=== PATIENT | female | born 1945 | race Caucasian/White ===

== ENCOUNTER → 2017-05-09 | Outpatient (CLI) | payer MEDICARE, OTHER ==
[~2017-05-09] MED LIST: ALPR0.254 PO; AMLO1CAP8 PO; ASCO1TAB8 PO; ASPI81TA50 PO; ATOR10TA PO; BENA1TAB6 PO; BIOT1CAP PO; CALC-507 PO; CARV20CP PO; CHOL100013 PO; CLOP75TA57 PO; DENO60DI SQ; FERR325T58 PO; FISH12002 PO; MAGN400C PO; MESA800T2 PO; MULT-208 PO; OMEP20CA5 PO; SPIR25TA3 PO; UBID100C40 PO; VIT1CAPS27 PO; VITA1TAB49 PO
--- NOTE | 2017-05-09 14:40 | RAD ---
EXAM: Pelvic ultrasound HISTORY: Urinary urgency, hematuria, proteinuria. COMPARISON: None. FINDINGS: Sonographic evaluation of the pelvis was performed transabdominally and transvaginally. The uterus is surgically absent. No pelvic mass is identified. The bladder is unremarkable sonographically. Prevoid volume is 175 mL. There is a 6 mL postvoid residual. There is no significant free fluid. Neither ovary is visualized. The adnexa are unremarkable. IMPRESSION: 1. No cause for pain is identified. Status post hysterectomy. 2. Neither ovary is visualized currently. By report, at least one is surgically absent. 3. 6 mL post void residual volume.
== END | disposition home or self-care (01) ==
LOC: US 10:11
PROVIDERS: ATTEND Family Medicine
DX: R31.29 Other microscopic hematuria (principal); R39.15 Urgency of urination; Z90.710 Acquired absence of both cervix and uterus
CPT/HCPCS: 76830; 76856

== ENCOUNTER → 2017-05-22 | Outpatient (CLI) | payer MEDICARE, OTHER ==
--- NOTE | 2017-05-22 17:30 | RAD ---
EXAM: Abdomen and pelvis CT without intravenous contrast. HISTORY: 71-year-old female with hematuria, right lower quadrant pain more than 2 weeks. Patient reports hysterectomy years ago. TECHNIQUE: Computed tomographic images of the abdomen and pelvis were obtained without contrast. Multiplanar reformatting was performed. PQRS compliance statement: One or more of the following individualized dose reduction techniques were utilized for this examination: 1. Automated exposure control 2. Adjustment of the mA and/or kV according to patient size 3. Use of iterative reconstruction technique COMPARISON: None. FINDINGS: The lung bases demonstrate no acute finding. A few tiny 2 mm noncalcified pulmonary nodules are seen within the visualized lung bases. Detailed evaluation of the intra-abdominal and pelvic organs and vascular structures is limited secondary to lack of IV contrast. Within these limitations, the liver, spleen, pancreas, adrenal glands and left kidney demonstrate no focal abnormality. The gallbladder is surgically absent. No hydronephrosis or nephrolithiasis is seen. A subtle hypoechoic area seen in the mid right kidney, not well evaluated on this noncontrast study. The GI tract demonstrates no dilated bowel loops to suggest obstruction. No definite bowel wall thickening is seen although evaluation is limited given lack of IV and oral contrast. Formed fecal material is present throughout the colon suggesting some degree of constipation. The appendix is not visualized extending off the cecum. The cecum is well visualized and surrounded by intra-abdominal fat, however no tubular structure is seen extending off the cecum to correspond with the appendix. No localized inflammatory changes are seen in this region to suggest acute appendicitis. There is mild haziness of the mesentery as well as a small volume of free fluid present within the dependent portions of the pelvis and lower abdomen along the paracolic gutters. The urinary bladder is grossly unremarkable. The uterus is surgically absent. No adnexal mass is seen. No intra-abdominal or pelvic free air or significant lymphadenopathy is seen. Aorta is normal in caliber with scattered atherosclerotic calcifications present. Overlying soft tissues and visualized osseous structures demonstrate no acute or suspicious finding. IMPRESSION: 1. Small amount of free fluid within the abdomen and pelvis, with mild mesenteric stranding, nonspecific. No focal bowel abnormality is seen on this noncontrast study. No nephrolithiasis or hydronephrosis present. 2. Vague hypoechoic area in the mid right kidney, incompletely characterized. This can be further evaluated with outpatient ultrasound or contrast-enhanced CT. 3. Tiny pulmonary nodules seen, recommend follow-up per Fleischner criteria. Fleischner Society recommendations for solid nodules (Radiology 2017): Single: In a low risk patient: <6mm - No routine follow up. >6-8mm-CT at 6-12 months, then consider CT at 18-24 months. >8mm- consider CT at 3 months, PET/CT or tissue sampling. In a high risk patient (history of smoking or other known risk factors): <6mm -optional CT at 12 months. >6-8mm-CT at 6-12 months, then CT at 18-24 months. >8mm-consider CT at 3 months, PET/CT or tissue sampling. Multiple: In a low risk patient: <6mm - No routine follow up. >6-8mm-CT at 3-6 months, then consider CT at 18-24 months. >8mm-CT at 3-6 months, then consider CT at 18-24 months. In a high risk patient (history of smoking or other known risk factors): <6mm -optional CT at 12 months. >6-8mm-CT at 3-6 months, then CT at 18-24 months. >8mm-CT in 3-6 months, then at 18-24 months. Electronically signed by: Yin Miranda MD (05/22/2017 5:27 PM) [id number]
== END | disposition home or self-care (01) ==
LOC: CT 16:23
PROVIDERS: ATTEND Family Medicine
DX: R19.03 Right lower quadrant abdominal swelling, mass and lump (principal); R91.8 Other nonspecific abnormal finding of lung field; I70.0 Atherosclerosis of aorta; Z90.49 Acquired absence of other specified parts of digestive tract; Z90.710 Acquired absence of both cervix and uterus
CPT/HCPCS: 74176

== ENCOUNTER → 2017-06-09 | Outpatient (CLI) | payer MEDICARE, OTHER ==
[~2017-06-09] MED LIST changes: +BARIUM SULFATE 60% 355 ML SUSP PO ONE
--- NOTE | 2017-06-09 10:44 | RAD ---
Small bowel follow-through study 06/09/2017 Clinical history: Diarrhea. History of Crohn's disease. Technique: A small bowel follow-through study was performed under radiographic and intermittent fluoroscopic control. The total fluoroscopic time for this study was 0.6 minutes. 2 digital spot radiographs were obtained. Findings: Comparison is made to patient's CT scan of the abdomen and pelvis dated 05/22/2017. An AP digital radiograph of the abdomen/pelvis was obtained as a child specialist. This demonstrates surgical clips within the right upper quadrant of the abdomen consistent with a cholecystectomy. The abdominal bowel gas pattern is nonobstructive. A moderate amount of stool is seen throughout the colon. No radiopaque calculus is seen. Degenerative changes are seen involving the lumbar spine and both hips. The mucosal pattern of the duodenum, jejunum, ileum and terminal ileum are within normal limits. The cecum is in its normal location within the right lower quadrant abdomen. The small bowel transit time is within normal limits. No small bowel wall thickening is seen. No extrinsic mass effect upon the small intestine is noted. Impression: Negative study.
== END | disposition home or self-care (01) ==
LOC: RAD 08:00
PROVIDERS: ATTEND Internal Medicine Gastroenterology
DX: R19.7 Diarrhea, unspecified (principal); K50.90 Crohn's disease, unspecified, without complications
CPT/HCPCS: 74250

== ENCOUNTER 2019-02-25 15:35 | Inpatient (IN) | payer MEDICARE, OTHER ==
[~2019-02-25] VITALS: Ht 147.3 cm; Wt 59.6 kg
[~2019-02-25 15:35] MED LIST changes: -AMLO1CAP8 PO; +AMLO1CAP9 PO; -BARIUM SULFATE 60% 355 ML SUSP PO ONE; -SPIR25TA3 PO; +SPIR25TA5 PO
[2019-02-25 15:54] VITALS: BP 138/71
[2019-02-25] MEDS ORDERED: MAGN400T22 PO (16:25)
[2019-02-25] MEDS ORDERED: CARV6.25 PO (16:25)
[2019-02-25] MEDS ORDERED: IV NORMAL SALINE 1,000ML 1,000 ML IV SCH (16:30)
[2019-02-25] MEDS: IPRATRPIUM/ALBUTEROL 0.5/2.5MG 3 ML NEBU. NEB SCH ×2 (16:40→21:25)
[2019-02-25] MEDS ORDERED: VITA400C6 PO (16:49)
[2019-02-25] MEDS ORDERED: ASCO500T3 PO (16:49)
[2019-02-25] MEDS ORDERED: BENA20TA4 PO (16:49)
[2019-02-25] MEDS ORDERED: BALS750C PO (16:49)
[2019-02-25] MEDS ORDERED: AMLO5TAB10 PO (16:49)
[2019-02-25] MEDS ORDERED: BIOT10004 PO (16:49)
[2019-02-25 16:59] LABS: BASO # 0.1 x10^3/uL (0.0-0.2); BASO % 1 % (0-3); EOS # 0.3 x10^3/uL (0.0-0.7); EOS % 2 % (0-3); HEMATOCRIT 31.5 % (36.0-47.0); HEMOGLOBIN 10.8 g/dL (12.0-15.5); LYMPH % 16 % (24-48); MEAN CORPUSCULAR HEMOGLOBIN 30 pg (25-35); MEAN CORPUSCULAR HGB CONC 34 g/dL (31-37); MEAN CORPUSCULAR VOLUME 89 fL (79-100); MONO # 1.3 x10^3/uL (0.0-1.1); MONO % 11 % (0-9); NEUT % 71 % (31-73); PLATELET COUNT 285 x10^3/uL (140-400); RED BLOOD COUNT 3.55 x10^6/uL (3.50-5.40); RED CELL DISTRIBUTION WIDTH 13.4 % (11.5-14.5); WHITE BLOOD COUNT 12.7 x10^3/uL (4.0-11.0)
--- NOTE | 2019-02-25 17:03 | NUR ---
NURSING NOTES: PATIENT ADMITTED TO [facility] ROOM 120 WITH DX OF PNEUMONIA. PATIENT ORIENTED TO ROOM AND UNIT ROUTINES. BELONGINGS LEFT WITH PATIENT INCLUDE: 2 RINGS, WATCH, PANTS, SHIRT, SOCKS, SHOES, JACKET, GLASSES AND GLASSES CASE.
[2019-02-25] MEDS: AZITHROMYCIN 500 MG in IV NORMAL SALINE 250ML 250 ML IV SCH (17:11)
[2019-02-25 17:13] LABS: ALBUMIN 2.6 g/dL (3.4-5.0); ALBUMIN/GLOBULIN RATIO 0.6 (1.0-1.7); CALCIUM 9.1 mg/dL (8.5-10.1); CREATININE 0.8 mg/dL (0.6-1.0); GFR 70.1; POTASSIUM 3.8 mmol/L (3.5-5.1); TOTAL BILIRUBIN 0.4 mg/dL (0.2-1.0); TOTAL PROTEIN 7.1 g/dL (6.4-8.2)
--- NOTE | 2019-02-25 17:30 | NUR ---
When I called the nurse SHEA Philippe about this patient breathing treatments, she stated the patient was in xray and then needed to eat so we agreed that patient would just get the scheduled 2000 treatment
[2019-02-25 18:27] VITALS: BP 120/71
[2019-02-25 22:21] LABS: BACTERIA,URINE FEW /HPF (0-FEW); BILIRUBIN,URINE NEG (NEG); CLARITY,URINE CLEAR; GLUCOSE,URINE NEG (NEG); NITRITE,URINE NEG (NEG); RBC,URINE 0 /HPF (0-2); SQUAMOUS EPITHELIAL CELL,UR OCC /LPF; UROBILINOGEN,URINE 0.2 mg/dL (0.2 mg/dL); WBC,URINE OCC /HPF (0-4)
[2019-02-25 22:22] LABS: COLOR,URINE YELLOW
[2019-02-26] MEDS: IPRATRPIUM/ALBUTEROL 0.5/2.5MG 3 ML NEBU. NEB SCH ×4 (04:32→19:58)
[2019-02-26 06:12] LABS: BASO % 0 % (0-3); EOS # 0.2 x10^3/uL (0.0-0.7); EOS % 2 % (0-3); HEMATOCRIT 30.4 % (36.0-47.0); HEMOGLOBIN 10.4 g/dL (12.0-15.5); LYMPH # 1.5 x10^3/uL (1.0-4.8); LYMPH % 12 % (24-48); MEAN CORPUSCULAR HEMOGLOBIN 31 pg (25-35); MEAN CORPUSCULAR HGB CONC 34 g/dL (31-37); MEAN CORPUSCULAR VOLUME 89 fL (79-100); MONO # 1.3 x10^3/uL (0.0-1.1); MONO % 10 % (0-9); NEUT # 9.3 x10^3uL (1.8-7.7); NEUT % 75 % (31-73); PLATELET COUNT 293 x10^3/uL (140-400); RED CELL DISTRIBUTION WIDTH 13.5 % (11.5-14.5); WHITE BLOOD COUNT 12.4 x10^3/uL (4.0-11.0)
[2019-02-26 06:19] LABS: CALCIUM 8.1 mg/dL (8.5-10.1); CREATININE 0.7 mg/dL (0.6-1.0); GFR 81.8
[2019-02-26 07:24] VITALS: BP 106/68
--- NOTE | 2019-02-26 08:34 | RAD ---
Examination: CT CHEST WO CONTRAST History: Right upper lobe pneumonia Comparison/Correlation: 03/23/2015 CT neck and chest with contrast, 06/01/2017 CT abdomen and pelvis without contrast Findings: Axial images of the chest were obtained without contrast. Sagittal and coronal reformatted images were provided. Dense right upper lobe consolidation is present abutting the major fissure. This is at the upper lung field extending to the hilar level. Left lung is unremarkable. Small right pleural effusion is present. No suspicious pulmonary nodules identified in the lung bases. Coronary arterial calcifications are noted. Minimal fluid in the pericardial recesses is identified. Right lower paratracheal lymph node measuring up to 0.84 cm diameter is present and likely reactive. Coronary arterial calcifications are notable. Small hiatal hernia is present. Cholecystectomy is evident. Moderate quantity of debris in the stomach is evident. Impression: Right upper lobe consolidation most likely representing pneumonia. Small pleural effusion. Follow-up to resolution is recommended to exclude possibility of underlying neoplastic involvement. Previously described punctate nodules involving the lung bases on 05/22/2017 CT abdomen and pelvis without contrast are stable. No suspicious lung basilar nodule. PQRS Compliance Statement: One or more of the following individualized dose reduction techniques were utilized for this examination: 1. Automated exposure control 2. Adjustment of the mA and/or kV according to patient size 3. Use of iterative reconstruction technique Electronically signed by: Anthony Cruz MD (02/26/2019 8:31 AM) [facility]
[2019-02-26] MEDS ORDERED: ALPRAZolam 0.25 MG TABLET PO PRN (08:45)
[2019-02-26] MEDS ORDERED: NON FORMULARY ITEM (Benazepril/Hydrochlorothiazide (Benazepril-Hctz 20-12.5 Mg Tab) 1 TAB) PO SCH (09:00)
[2019-02-26] MEDS: FERROUS SULFATE 325 MG TABLET. PO SCH (09:10)
[2019-02-26] MEDS: amLODIPine BESYLATE 5 MG TABLET PO SCH ×2 (09:10→20:31)
[2019-02-26] MEDS: MAGNESIUM OXIDE 400 MG TABLET PO SCH (09:10)
[2019-02-26] MEDS: hydroCHLOROthiazide 12.5 MG CAPSULE PO SCH (09:10)
[2019-02-26] MEDS: CLOPIDOGREL BISULFATE 75 MG TABLET PO SCH (09:10)
[2019-02-26] MEDS: CARVEDILOL 6.25 MG TABLET PO SCH ×2 (09:10→17:44)
[2019-02-26] MEDS: SPIRONOLACTONE 25 MG TABLET PO SCH (09:11)
[2019-02-26] MEDS: LACTOBACILLUS RHAMNOSUS GG 1 CAPSULE. PO SCH ×2 (09:11→20:30)
[2019-02-26] MEDS: MULTIVITAMIN with MINERAL TABLET. PO SCH (09:11)
[2019-02-26] MEDS: LISINOPRIL 20 MG TABLET PO SCH ×2 (09:11→20:30)
[2019-02-26] MEDS: ASPIRIN ENTERIC COATED 81 MG TABLET.DR. PO SCH (09:11)
[2019-02-26] MEDS: PANTOPRAZOLE 40 MG TABLET. PO SCH (09:11)
--- NOTE | 2019-02-26 09:40 | RAD ---
CHEST PA LATERAL History: Pneumonia. Comparison: Chest CT February 25, 2019. Findings: Right upper lobe consolidation. Small right pleural effusion. Surgical clips right upper quadrant. Normal heart size. Impression: 1. Right upper lobe consolidation, concerning for pneumonia. Recommend follow-up to ensure resolution. 2. Small right pleural effusion. Electronically signed by: Chivo Mckinnon DO (02/26/2019 9:38 AM) [facility]
[2019-02-26] MEDS: guaiFENesin DM 200MG/20MG 10 ML SYRUP PO PRN ×2 (11:03→20:30)
[2019-02-26 11:20] VITALS: BP 112/66
[2019-02-26 15:27] VITALS: BP 104/56
[2019-02-26] MEDS: AZITHROMYCIN 500 MG in IV NORMAL SALINE 250ML 250 ML IV SCH (16:36)
[2019-02-26 20:28] VITALS: BP 108/62
[2019-02-26] MEDS: ATORVASTATIN CALCIUM 20 MG TABLET PO SCH (20:30)
[2019-02-26] MEDS: BALSALAZIDE DISODIUM 750 MG PO SCH (20:30)
[2019-02-26] MEDS ORDERED: BENAZEPRIL HCL PO SCH (21:00)
[2019-02-26 23:23] VITALS: BP 109/65
[2019-02-27] VITALS (8 sets, daily range): BP systolic 90–115; BP diastolic 56–71
[2019-02-27] MEDS: IPRATRPIUM/ALBUTEROL 0.5/2.5MG 3 ML NEBU. NEB SCH ×4 (04:57→20:38)
[2019-02-27] MEDS: PANTOPRAZOLE 40 MG TABLET. PO SCH (07:53)
[2019-02-27] MEDS: CARVEDILOL 6.25 MG TABLET PO SCH ×2 (08:56→17:11)
[2019-02-27] MEDS ORDERED: ZOLPIDEM 5 MG TABLET. PO PRN (09:45)
[2019-02-27] MEDS ORDERED: LOPERAMIDE 2 MG CAPSULE PO PRN (09:45)
[2019-02-27] MEDS: BALSALAZIDE DISODIUM 750 MG PO SCH ×2 (10:56→20:52)
[2019-02-27] MEDS: MAGNESIUM OXIDE 400 MG TABLET PO SCH (10:57)
[2019-02-27] MEDS: ASPIRIN ENTERIC COATED 81 MG TABLET.DR. PO SCH (10:57)
[2019-02-27] MEDS: LACTOBACILLUS RHAMNOSUS GG 1 CAPSULE. PO SCH ×2 (10:57→20:50)
[2019-02-27] MEDS: MULTIVITAMIN with MINERAL TABLET. PO SCH (10:58)
[2019-02-27] MEDS: LISINOPRIL 20 MG TABLET PO SCH ×2 (11:03→20:53)
[2019-02-27] MEDS: hydroCHLOROthiazide 12.5 MG CAPSULE PO SCH (11:03)
[2019-02-27] MEDS: SPIRONOLACTONE 25 MG TABLET PO SCH (11:03)
[2019-02-27] MEDS: amLODIPine BESYLATE 5 MG TABLET PO SCH ×2 (11:04→20:53)
--- NOTE | 2019-02-27 11:57 | RAD ---
CHEST PA LATERAL Clinical indications: Pneumonia. Follow-up study. COMPARISON: February 25, 2019. Findings: Again seen is a right upper lobe lung infiltrate. There has been mild improvement. Small posterior right-sided pleural effusion is unchanged. The heart size, pulmonary vasculature, mediastinum and both zina are unremarkable. Mild compression deformity of the upper thoracic spine is unchanged. Impression: Mild improvement of diffuse right upper lobe consolidative infiltrate. Electronically signed by: Jb Red MD (02/27/2019 11:54 AM) [place] [id number]
--- NOTE | 2019-02-27 15:38 | CONS ---
DATE OF CONSULTATION: REASON FOR CONSULTATION: Medical management. HISTORY OF PRESENT ILLNESS: The patient is an 87-year-old male patient, who was admitted to [address] [place] [address] Payne's care. Apparently, the patient was admitted with marked dehydration. He has been unable to eat or drink. He was also quite violent and had episodes of impulse control with his and therefore, he was treated with IV fluid and once he is medically stable, he was [facility]. She apparently has a history of dementia, Alzheimer, vascular. He had been living at home with his and then the had to be hospitalized during the rehabilitation. The son was the caregiver for them. Reportedly, he was overwhelmed to his mother's care. The patient has been increasingly forgetful, confused as part of his dementia, getting more depressed, was dehydrated, agitated, difficult to manage at home with unexplained weight loss and failure to thrive and therefore, he was [facility] to [facility] after stabilization in [address] [place] [address]. The patient is very demented and does not give any useful information. PAST MEDICAL HISTORY: Significant for dehydration, failure to thrive, weight loss, history of cancer of the prostate, congestive heart failure, COPD, hypertension, prostate cancer, treated with chemotherapy. He also has musculoskeletal disorder, arthritis and hypothyroidism. PAST SURGICAL HISTORY: Unremarkable. FAMILY HISTORY: Positive for heart disease. SOCIAL HISTORY: The patient seems to be a smoker. He denied any alcohol or drug abuse. He is currently a DNR/DNI. ALLERGIES: HE IS ALLERGIC TO SULFA AND OLMESARTAN. MEDICATIONS: He is currently on following medications: He is on metoprolol 25 mg twice a day, aspirin 81 mg once a day, meloxicam 15 mg daily, quetiapine fumarate 50 mg at bedtime, hydroxyzine 25 mg 3 times a day, levothyroxine sodium 50 mcg once a day and clobetasol emollient applied topically twice a day. REVIEW OF SYSTEMS: As per history of present illness. PHYSICAL EXAMINATION GENERAL: When I examined him this afternoon, he was sitting in the chair comfortably in no apparent distress. He was definitely confused, but not agitated, slightly pale, but no jaundice, cyanosis or thyromegaly. No jugular venous distention. No limb edema. VITAL SIGNS: His heart rate was 67, blood pressure was 163/65, temperature was 97.5, respiratory rate was 18 and oxygen saturation was 94%. HEAD, EYES, EARS, NOSE AND THROAT: Showed normocephalic, atraumatic. NECK: Supple. HEART: Showed normal first and second heart sounds with no gallop or murmur. CHEST: Clear to auscultation. No crepitation, rhonchi. ABDOMEN: Distended, soft, nontender. No guarding or rigidity. No organomegaly. All hernial orifices intact. Bowel sounds normal. NEUROLOGIC: He is demented, but without any obvious lateralizing sign. All his cranial nerves are intact. EXTREMITIES: He moves extremities without difficulty, ambulates without assistance or assistive device, although he is very unsteady on his gait. LABORATORY DATA: Showed a white cell count 7800, hemoglobin 13, hematocrit 39, MCV 87, and platelet count of 135,000. Serum sodium was 135, potassium 4.3, chloride 98, bicarbonate 29, anion gap of 8, BUN 23, creatinine 1.1, estimated GFR was 63 mL per minute. His glucose was 104, calcium was 9.4. Total bilirubin, AST, ALT were normal. Alkaline phosphatase slightly elevated. Total protein was 8, albumin was 3.5. His urinalysis was essentially unremarkable. His chest x-ray showed that cardiomediastinal silhouette is normal. Pulmonary vasculature is normal. The lungs are hyperinflated. There are reticular opacities in the lungs. IMPRESSION: In summary, this is an 87-year-old male patient who was [facility] after stabilization in [address] [place] [address] for dehydration on account of increasing confusion, unexplained weight loss, failure to thrive. He has been increasingly forgetful, confused, has been also violent and therefore was admitted to this unit for inpatient psychiatric stabilization. Medically, he has multiple medical problems including weight loss and failure to thrive, history of cancer and congestive heart failure, long-term chronic obstructive pulmonary disease, congestive heart failure, hypertension, prostate cancer. He is also known to have hypothyroidism. His vital signs are all generally stable, although he has been very agitated and blood pressure was high, although after treatment with Ativan, his blood pressure came down, all his lab works are well within normal range. PLAN: My plan is to obviously follow his labs and review and make any necessary recommendations. Thank you, Dr. Duke for allowing me to participate in the care of this patient. RAFAEL SIN MD DR: Bolivar JOB#: [id number] / [id number]
[2019-02-27] MEDS: AZITHROMYCIN 500 MG in IV NORMAL SALINE 250ML 250 ML IV SCH (17:32)
[2019-02-27] MEDS: ATORVASTATIN CALCIUM 20 MG TABLET PO SCH (20:50)
[2019-02-27] MEDS: guaiFENesin DM 200MG/20MG 10 ML SYRUP PO PRN (20:50)
--- NOTE | 2019-02-27 23:35 | PN ---
DATE: SUBJECTIVE: The patient not feeling very well, although her pneumonia may be clearing. She is having severe diarrhea, we will check her for C. diff. The patient will get a repeat chest x-ray, has not had one in a couple of days. OBJECTIVE: VITAL SIGNS: Blood pressure 115/60, respiratory rate 20, pulse 80, afebrile, good oxygen saturation. GENERAL: The patient looks ill. LUNGS: Diminished primarily in the right upper lobe. Lungs are clear on the left. CARDIOVASCULAR: Stable. ABDOMEN: Soft. EXTREMITIES: No clubbing, cyanosis or edema. Several bowel movements, no blood or mucus noted. NEUROLOGIC: Intact. We will go ahead and continue to monitor her, get her C. difficile toxin assay and monitor carefully, on that she has had a history of Crohn's disease. The patient otherwise continued to be monitored and make further evaluation per those responses to the test noted. IMPRESSION: Pneumonia of unspecified etiology, right upper lobe, diarrhea, history of Crohn's disease. PLAN: As above. VICKI CONNOR MD DR: ALEKSANDR/zane JOB#: [id number] / [id number]
[2019-02-28] MEDS: guaiFENesin DM 200MG/20MG 10 ML SYRUP PO PRN ×4 (02:50→19:09)
[2019-02-28] MEDS: IPRATRPIUM/ALBUTEROL 0.5/2.5MG 3 ML NEBU. NEB SCH ×4 (05:20→19:46)
[2019-02-28 05:38] VITALS: BP 117/69
[2019-02-28 06:47] LABS: CALCIUM 8.5 mg/dL (8.5-10.1); CREATININE 0.7 mg/dL (0.6-1.0); GFR 81.8
[2019-02-28] MEDS: PANTOPRAZOLE 40 MG TABLET. PO SCH (07:41)
[2019-02-28 07:42] VITALS: BP 115/65
[2019-02-28] MEDS: CARVEDILOL 6.25 MG TABLET PO SCH ×2 (07:42→18:05)
[2019-02-28] MEDS: MAGNESIUM OXIDE 400 MG TABLET PO SCH (09:10)
[2019-02-28] MEDS: BALSALAZIDE DISODIUM 750 MG PO SCH ×2 (09:10→20:14)
[2019-02-28] MEDS: FERROUS SULFATE 325 MG TABLET. PO SCH (09:10)
[2019-02-28] MEDS: LACTOBACILLUS RHAMNOSUS GG 1 CAPSULE. PO SCH ×2 (09:10→20:13)
[2019-02-28] MEDS: ASPIRIN ENTERIC COATED 81 MG TABLET.DR. PO SCH (09:10)
[2019-02-28] MEDS: CLOPIDOGREL BISULFATE 75 MG TABLET PO SCH (09:10)
[2019-02-28] MEDS: MULTIVITAMIN with MINERAL TABLET. PO SCH (09:10)
--- NOTE | 2019-02-28 09:14 | NUR ---
VS checked p/t 0900 med administration: BP 109/62, HR 79, SpO2 98% on RA. Did not admin Spironolactone, Amlodipine, Hydrochlorothiazide or Lisinopril given pt's BP. Pt concurred, stating, "I don't take my blood pressure medications at home if my blood pressure is less than 120." WCTM. Andrew Negron RN Addendum: 02/28/19 at 1322 by ALEXANDER NEGRON RN RN Rechecked BP at 1318: 106/61 left arm, sitting, with HR 75 and SpO2 99% on RA. Will not administer 0900 spironolactone, hydrochlorothiazide, amlodipine, or lisinopril given continued lower pressures. WCTM. Andrew Negron RN
[2019-02-28 11:18] VITALS: BP 117/63
[2019-02-28 13:25] VITALS: BP 106/61
[2019-02-28] MEDS: amLODIPine BESYLATE 5 MG TABLET PO SCH ×2 (13:30→20:09)
[2019-02-28] MEDS: LISINOPRIL 20 MG TABLET PO SCH ×2 (13:30→20:09)
[2019-02-28] MEDS: hydroCHLOROthiazide 12.5 MG CAPSULE PO SCH (13:30)
[2019-02-28] MEDS: SPIRONOLACTONE 25 MG TABLET PO SCH (13:30)
[2019-02-28 15:16] VITALS: BP 113/66
[2019-02-28] MEDS: AZITHROMYCIN 500 MG in IV NORMAL SALINE 250ML 250 ML IV SCH (18:06)
[2019-02-28] MEDS ORDERED: DIPH25CA58 PO (19:55)
[2019-02-28] MEDS ORDERED: diphenhydrAMINE HCL 25 MG CAPSULE PO PRN (20:00)
[2019-02-28] MEDS: ATORVASTATIN CALCIUM 20 MG TABLET PO SCH (20:13)
[2019-02-28 20:21] VITALS: BP 112/66
--- NOTE | 2019-02-28 21:19 | PN ---
DATE: 02/28/2019 SUBJECTIVE: The patient in with pneumonia, still having coughing spells ____ still very weak. OBJECTIVE: VITAL SIGNS: Blood pressure goes down to 95/60, respiratory rate 20, pulse 80, afebrile. GENERAL: The patient is still very weak, difficulty walking. Started on PT, OT. LUNGS: Diminished primarily in the right upper lobe. X-ray showed some modest improvement, but continued IV antibiotic therapy as she has failed outpatient therapy. CARDIOVASCULAR: Regular sinus rhythm. ABDOMEN: Soft, nontender. EXTREMITIES: No clubbing, cyanosis or edema. NEUROLOGIC: The patient is alert and oriented. IMPRESSION AND PLAN: Right upper lobe pneumonia as well as diarrhea and history of Crohn disease. The patient's C. difficile is still pending. VICKI CONNOR MD DR: ALEKSANDR/zane JOB#: [id number] / [id number]
[2019-03-01 00:14] VITALS: BP 107/63
[2019-03-01] MEDS: IPRATRPIUM/ALBUTEROL 0.5/2.5MG 3 ML NEBU. NEB SCH ×2 (05:51→10:03)
[2019-03-01 06:00] VITALS: BP 105/66
[2019-03-01 06:42] LABS: CALCIUM 8.6 mg/dL (8.5-10.1); CREATININE 0.7 mg/dL (0.6-1.0); GFR 81.8; POTASSIUM 4.3 mmol/L (3.5-5.1)
[2019-03-01 06:50] LABS: BASO % 0 % (0-3); EOS # 0.3 x10^3/uL (0.0-0.7); EOS % 3 % (0-3); HEMATOCRIT 31.8 % (36.0-47.0); HEMOGLOBIN 10.8 g/dL (12.0-15.5); LYMPH # 2.4 x10^3/uL (1.0-4.8); LYMPH % 23 % (24-48); MEAN CORPUSCULAR HEMOGLOBIN 31 pg (25-35); MEAN CORPUSCULAR HGB CONC 34 g/dL (31-37); MEAN CORPUSCULAR VOLUME 90 fL (79-100); MONO # 0.9 x10^3/uL (0.0-1.1); MONO % 9 % (0-9); NEUT # 6.8 x10^3uL (1.8-7.7); NEUT % 66 % (31-73); PLATELET COUNT 409 x10^3/uL (140-400); RED BLOOD COUNT 3.55 x10^6/uL (3.50-5.40); RED CELL DISTRIBUTION WIDTH 13.5 % (11.5-14.5); WHITE BLOOD COUNT 10.4 x10^3/uL (4.0-11.0)
[2019-03-01] MEDS: PANTOPRAZOLE 40 MG TABLET. PO SCH (07:41)
[2019-03-01] MEDS: CARVEDILOL 6.25 MG TABLET PO SCH (07:42)
[2019-03-01] MEDS: MAGNESIUM OXIDE 400 MG TABLET PO SCH (09:13)
[2019-03-01] MEDS: LACTOBACILLUS RHAMNOSUS GG 1 CAPSULE. PO SCH (09:13)
[2019-03-01] MEDS: BALSALAZIDE DISODIUM 750 MG PO SCH (09:13)
[2019-03-01] MEDS: LISINOPRIL 20 MG TABLET PO SCH (09:14)
[2019-03-01] MEDS: MULTIVITAMIN with MINERAL TABLET. PO SCH (09:14)
[2019-03-01] MEDS: SPIRONOLACTONE 25 MG TABLET PO SCH (09:14)
[2019-03-01] MEDS: ASPIRIN ENTERIC COATED 81 MG TABLET.DR. PO SCH (09:14)
[2019-03-01] MEDS: hydroCHLOROthiazide 12.5 MG CAPSULE PO SCH (09:14)
[2019-03-01] MEDS: amLODIPine BESYLATE 5 MG TABLET PO SCH (09:14)
[2019-03-01] MEDS: guaiFENesin DM 200MG/20MG 10 ML SYRUP PO PRN (09:14)
[2019-03-01] MEDS ORDERED: ZOLP5TAB PO (09:52)
[2019-03-01 10:39] VITALS: BP 104/63
--- NOTE | 2019-03-01 11:26 | NUR ---
NURSES NOTES: PATIENT D/C HOME WITH HOME HEALTH. ALL PATIENT BELONGING SENT HOME WITH PATIENT. PATIENT ACCOMPANIED OUT OF FACILITY BY .
[2019-03-01] MEDS ORDERED: levoFLOXacin 750 MG TABLET PO SCH (18:00)
== END 2019-03-01 11:28 | disposition home health service (06) | DRG 871 ==
LOC: 1 SOUTH 15:35
PROVIDERS: ADMIT Family Medicine; ATTEND Family Medicine
DX: A41.9 Sepsis, unspecified organism (principal); J18.1 Lobar pneumonia, unspecified organism; K50.90 Crohn's disease, unspecified, without complications; J44.0 Chronic obstructive pulmonary disease with (acute) lower respiratory infection; Z66 Do not resuscitate; E03.9 Hypothyroidism, unspecified; R19.7 Diarrhea, unspecified; E86.0 Dehydration; F17.200 Nicotine dependence, unspecified, uncomplicated; I11.0 Hypertensive heart disease with heart failure; I50.9 Heart failure, unspecified; M19.90 Unspecified osteoarthritis, unspecified site; F02.80 Dementia in other diseases classified elsewhere, unspecified severity, without behavioral disturbance, psychotic disturbance, mood disturbance, and anxiety; G30.9 Alzheimer's disease, unspecified; Z85.89 Personal history of malignant neoplasm of other organs and systems; Z92.21 Personal history of antineoplastic chemotherapy; Z88.0 Allergy status to penicillin
CPT/HCPCS: 36415; 71046; 71250; 80048; 80053; 81001; 83605; 85025; 87040; 87070; 87205; 94640; J0456; J1956; J7050; J7620; Q0163; 97116; J7030

== ENCOUNTER → 2019-07-01 | Outpatient (CLI) | payer MEDICARE, OTHER ==
[~2019-07-01] MED LIST changes: +AMLO5TAB10 PO; +ASCO500T3 PO; +BALS750C PO; +BENA20TA4 PO; +BIOT10004 PO; +CARV6.25 PO; +DENOSUMAB 60 MG/ML DISP.SYRIN. SQ ONE; +DIPH25CA58 PO; +MAGN400T22 PO; +PRED20TA PO; +VITA-54 PO; +ZOLP5TAB PO
[2019-07-01 12:11] VITALS: BP 131/75
--- NOTE | 2019-07-01 12:14 | NUR ---
NURSING NOTE PT AMBULATED TO ROOM 105 FOR OUTPATIENT INJ OF PROLIA. VITALS OBTAINED. INJECTION GIVEN. PT TOLERATED WELL. PT AMBULATED OFF UNIT. NO COMPLICATIONS. SHEA MALONE.
== END | disposition home or self-care (01) ==
LOC: OPINF 11:26
PROVIDERS: ATTEND Family Medicine
DX: M81.8 Other osteoporosis without current pathological fracture (principal); E03.9 Hypothyroidism, unspecified; I11.0 Hypertensive heart disease with heart failure; I50.9 Heart failure, unspecified; J44.9 Chronic obstructive pulmonary disease, unspecified; G30.9 Alzheimer's disease, unspecified; F02.80 Dementia in other diseases classified elsewhere, unspecified severity, without behavioral disturbance, psychotic disturbance, mood disturbance, and anxiety; M19.90 Unspecified osteoarthritis, unspecified site; F17.200 Nicotine dependence, unspecified, uncomplicated; Z92.21 Personal history of antineoplastic chemotherapy; Z85.89 Personal history of malignant neoplasm of other organs and systems
CPT/HCPCS: 96372; J0897

== ENCOUNTER 2019-07-02 16:56 | Emergency (ER) | payer MEDICARE, OTHER ==
[~2019-07-02] VITALS: Ht 147.3 cm; Wt 59.4 kg
[~2019-07-02 16:56] MED LIST changes: -DENOSUMAB 60 MG/ML DISP.SYRIN. SQ ONE; -PRED20TA PO
--- NOTE | 2019-07-02 17:57 | PHYS DOC ---
Past History Past Medical History: Anxiety, GERD, High Cholesterol, Hypertension, Other Additional Past Medical Histor: CROHNS, OSTEOPOROSIS Past Surgical History: Cholecystectomy, Hysterectomy Smoking: Non-smoker Alcohol Use: None Drug Use: None Adult General Chief Complaint Chief Complaint: OTHER COMPLAINTS HPI HPI Patient is a 73-year-old female presents with a complaint of a strange "head sensation". She reports this morning she woke with a sensation that she is unable to describe. She denies feeling headache, pressure, sharp pain, or numbness. Patient is unable to isolate the location of the sensation and just describes it as her "whole head". Patient mentions that she received her Prolea shot for her osteoporosis yesterday, called her PCP, Dr. Kilgore, and was told to come to the emergency department for evaluation. Patient denies any trauma. Patient took Tylenol for this with no relief. Patient reports that she is on Plavix and aspirin. Patient denies fevers, chest pain, shortness of breath, abdominal pain, nausea, vomiting, or loss of consciousness. Review of Systems Review of Systems Constitutional: Denies fever or chills Eyes: Denies redness or eye pain HENT: Denies nasal congestion or sore throat Respiratory: Denies cough or shortness of breath Cardiovascular: Denies chest pain or palpitations GI: Denies abdominal pain, nausea, or vomiting : Denies dysuria or hematuria Musculoskeletal: Denies back pain or joint pain Integument: Denies rash or skin lesions Neurologic: Denies focal weakness or sensory changes. Reports strange head se nsation. Complete systems were reviewed and found to be within normal limits, except as documented in this note. Allergies Allergies Allergies Coded Allergies Type Severity Reaction Last Updated Verified acetaminophen Allergy Intermediate 03/23/15 Yes propoxyphene Allergy Intermediate 03/23/15 Yes adhesive tape Allergy Unknown 03/23/15 Yes clonidine Allergy Unknown 03/23/15 Yes iodine Allergy Unknown 03/23/15 Yes loratadine Allergy Unknown 03/23/15 Yes magnesium sulfate Allergy Unknown 02/25/19 Yes oxycodone Allergy Unknown 02/25/19 Yes penicillin Allergy Unknown 03/23/15 Yes potassium Allergy Unknown 02/25/19 Yes pseudoephedrine Allergy Unknown 02/25/19 Yes sodium sulfate Allergy Unknown 02/25/19 Yes Physical Exam Physical Exam Constitutional: Well developed, well nourished, no acute distress, non-toxic appearance HENT: Normocephalic, atraumatic, oropharynx moist Eyes: PERRL, EOMI, conjunctiva normal, no discharge Neck: Normal range of motion, no tenderness, supple Cardiovascular: Heart rate normal, regular rhythm Lungs & Thorax: Bilateral breath sounds clear to auscultation, no wheezing Abdomen: Soft, no tenderness Skin: Warm, dry, no erythema, no rash Back: No tenderness, no CVA tenderness Extremities: No tenderness, ROM intact, no edema Neurologic: Alert and oriented X 3, normal motor function, normal sensory function, no focal deficits noted. Psychologic: Affect normal, judgement normal, mood normal Current Patient Data Vital Signs Vital Signs Date Time Temp Pulse Resp B/P (MAP) Pulse Ox O2 Delivery O2 Flow Rate FiO2 07/02/19 17:33 97.9 60 16 100 Room Air EKG EKG [] Radiology/Procedures Radiology/Procedures PROCEDURE: CT HEAD WO CONTRAST Exam: CT head INDICATION: Head fullness TECHNIQUE: Sequential axial images through the head were obtained without the administration of IV contrast. Comparisons: None FINDINGS: No focal parenchymal lesion or hemorrhage is identified. There is no midline shift or sulcal effacement. No acute vascular territory infarction is identified. Obando-white distinction is preserved. The ventricular system is within normal limits without compression hydrocephalus. The basal cisterns are well maintained. Polypoid mucosal thickening within the left sphenoid sinus. The visualized portions of the paranasal sinuses and mastoid air cells are well-pneumatized. No acute fractures. IMPRESSION: No acute intracranial abnormality. Sinus disease as described above. Exposure: One or more of the following in the visualized dose reduction techniques were utilized for this examination: 1. Automated exposure control 2. Adjustment of the MA and/or KV according to patient size Use of iterative of reconstructive technique Electronically signed by: Sasha Fuentes MD (07/02/2019 6:31 PM) [facility] Course & Med Decision Making Course & Med Decision Making Pertinent Imaging studies reviewed. (See chart for details) Patient presents to the ED at direction of her PCP for a strange "head sensation". Patient with history of anticoagulation. CT head obtained to rule out internal bleeding. CT is unremarkable except for Polypoid mucosal thickening within the left sphenoid sinus which may be the etiology of patient's "head sensation". Patient stable for discharge with outpatient follow-up with PCP. Discussed findings and plan with patient and family, who acknowledge understanding and agreement. Dragon Disclaimer Dragon Disclaimer This electronic medical record was generated, in whole or in part, using a voice recognition dictation system. Departure Departure: Impression: Primary Impression: Headache Additional Impression: Sinus disease Disposition: HOME, SELF-CARE Condition: STABLE Referrals: VICKI CONNOR MD (PCP) Patient Instructions: Headache, FAQs, Sinus Headache, [id number] Scripts Prednisone (PREDNISONE) 20 Mg Tablet 2 TAB PO DAILY for sinus disease, #8 TAB Start this prescription tomorrow, Monday07/03/2019 Prov: JASKARAN PRADO DO 07/02/19 Problem Qualifiers Primary Impression: Headache Headache type: unspecified Headache chronicity pattern: acute headache Intractability: not intractable Qualified Codes: R51 - Headache JASKARAN PRADO DO Jul 02, 2019 17:57
[2019-07-02] MEDS ORDERED: DEXAMETHASONE 4 MG TABLET PO ONE (18:15)
--- NOTE | 2019-07-02 18:34 | RAD ---
Exam: CT head INDICATION: Head fullness TECHNIQUE: Sequential axial images through the head were obtained without the administration of IV contrast. Comparisons: None FINDINGS: No focal parenchymal lesion or hemorrhage is identified. There is no midline shift or sulcal effacement. No acute vascular territory infarction is identified. Obando-white distinction is preserved. The ventricular system is within normal limits without compression hydrocephalus. The basal cisterns are well maintained. Polypoid mucosal thickening within the left sphenoid sinus. The visualized portions of the paranasal sinuses and mastoid air cells are well-pneumatized. No acute fractures. IMPRESSION: No acute intracranial abnormality. Sinus disease as described above. Exposure: One or more of the following in the visualized dose reduction techniques were utilized for this examination: 1. Automated exposure control 2. Adjustment of the MA and/or KV according to patient size Use of iterative of reconstructive technique Electronically signed by: Sasha Fuentes MD (07/02/2019 6:31 PM) [facility]
[2019-07-02 18:56] VITALS: BP 129/60
[2019-07-02] MEDS ORDERED: PRED20TA PO (19:02)
== END 2019-07-02 19:07 | disposition home or self-care (01) ==
LOC: ER 16:56
DX: J32.9 Chronic sinusitis, unspecified (principal); R51 Headache; F41.9 Anxiety disorder, unspecified; K21.9 Gastro-esophageal reflux disease without esophagitis; E78.00 Pure hypercholesterolemia, unspecified; I10 Essential (primary) hypertension; Z88.8 Allergy status to other drugs, medicaments and biological substances; Z88.0 Allergy status to penicillin; Z88.5 Allergy status to narcotic agent
CPT/HCPCS: 70450; 99284; J8540

== ENCOUNTER 2019-08-12 15:17 | Inpatient (IN) | payer MEDICARE, OTHER ==
[~2019-08-12] VITALS: Ht 147.3 cm; Wt 61.9 kg
[~2019-08-12 15:17] MED LIST changes: +PRED20TA PO
[2019-08-12 15:46] VITALS: BP 128/69
[2019-08-12] MEDS: IPRATRPIUM/ALBUTEROL 0.5/2.5MG 3 ML NEBU. NEB SCH ×2 (16:37→21:51)
[2019-08-12] MEDS ORDERED: diphenhydrAMINE HCL 25 MG CAPSULE PO PRN (16:45)
[2019-08-12 16:58] LABS: HEMATOCRIT 35.4 % (36.0-47.0); HEMOGLOBIN 11.7 g/dL (12.0-15.5); RED BLOOD COUNT 3.87 x10^6/uL (3.50-5.40); RED CELL DISTRIBUTION WIDTH 14.1 % (11.5-14.5); WHITE BLOOD COUNT 6.5 x10^3/uL (4.0-11.0)
[2019-08-12] MEDS: CARVEDILOL 6.25 MG TABLET PO SCH (17:00)
[2019-08-12 17:22] LABS: ALBUMIN 3.4 g/dL (3.4-5.0); ALBUMIN/GLOBULIN RATIO 1.1 (1.0-1.7); CALCIUM 8.6 mg/dL (8.5-10.1); CREATININE 0.8 mg/dL (0.6-1.0); GFR 70.1; POTASSIUM 3.6 mmol/L (3.5-5.1); TOTAL BILIRUBIN 0.1 mg/dL (0.2-1.0); TOTAL PROTEIN 6.5 g/dL (6.4-8.2)
[2019-08-12 19:47] VITALS: BP 101/63
[2019-08-12] MEDS ORDERED: LISINOPRIL 20 MG TABLET PO SCH (21:00)
[2019-08-12] MEDS: BALSALAZIDE DISODIUM 750 MG PO SCH (21:00)
[2019-08-12 21:50] VITALS: BP 111/68
[2019-08-12] MEDS: ATORVASTATIN CALCIUM 20 MG TABLET PO SCH (21:50)
[2019-08-12] MEDS: amLODIPine BESYLATE 5 MG TABLET PO SCH (21:50)
[2019-08-12] MEDS: methylPREDNISolone SOD SUCC PF 40 MG/ML VIAL. IV SCH (21:51)
[2019-08-12] MEDS: ALPRAZolam 0.25 MG TABLET PO PRN (21:53)
[2019-08-12 23:26] VITALS: BP 112/67
[2019-08-13] MEDS: IPRATRPIUM/ALBUTEROL 0.5/2.5MG 3 ML NEBU. NEB SCH ×4 (05:47→20:41)
[2019-08-13 05:48] VITALS: BP 112/67
[2019-08-13] MEDS: methylPREDNISolone SOD SUCC PF 40 MG/ML VIAL. IV SCH ×3 (05:59→20:37)
[2019-08-13] MEDS: CALCIUM CARB/VIT D3 500/200 TABLET PO SCH (07:39)
[2019-08-13] MEDS: VITAMIN B COMPLEX CAPSULE. PO SCH (07:40)
[2019-08-13] MEDS: ASCORBIC ACID 500 MG TABLET PO SCH (07:45)
[2019-08-13] MEDS: CHOLECALCIFEROL (VITAMIN D3) 1,000 UNIT TABLET PO SCH (07:45)
[2019-08-13] MEDS: VITAMIN E. 400 UNIT CAPSULE. PO SCH (07:46)
[2019-08-13] MEDS: MULTIVITAMIN with MINERAL TABLET. PO SCH (07:46)
[2019-08-13] MEDS: MAGNESIUM OXIDE 400 MG TABLET PO SCH (07:46)
[2019-08-13] MEDS: UBIDECARENONE 50 MG CAPSULE. PO SCH (07:47)
[2019-08-13] MEDS: OMEGA-3 FATTY ACIDS/FISH OIL 1,000 MG CAPSULE. PO SCH (07:47)
[2019-08-13] MEDS: ALPRAZolam 0.25 MG TABLET PO PRN ×2 (07:47→20:36)
[2019-08-13] MEDS: PANTOPRAZOLE 40 MG TABLET. PO SCH (07:47)
[2019-08-13] MEDS: CARVEDILOL 6.25 MG TABLET PO SCH (07:48)
[2019-08-13] MEDS: SPIRONOLACTONE 25 MG TABLET PO SCH (07:48)
[2019-08-13] MEDS: ASPIRIN ENTERIC COATED 81 MG TABLET.DR. PO SCH (07:48)
[2019-08-13] MEDS: amLODIPine BESYLATE 5 MG TABLET PO SCH ×2 (07:49→20:36)
[2019-08-13] MEDS: BALSALAZIDE DISODIUM 750 MG PO SCH ×2 (07:50→20:47)
[2019-08-13] MEDS ORDERED: hydroCHLOROthiazide 12.5 MG CAPSULE PO SCH (09:00)
[2019-08-13] MEDS ORDERED: NON FORMULARY ITEM (Biotin 1,000 MCG) PO SCH (09:00)
[2019-08-13] MEDS ORDERED: ZOLPIDEM 5 MG TABLET. PO PRN (09:30)
[2019-08-13 10:46] VITALS: BP 119/70
--- NOTE | 2019-08-13 11:22 | PN ---
DATE: SUBJECTIVE: A 73-year-old female admitted with 6-week history of severe bronchospasm, shortness of breath. The patient was very tired. Her lungs were diminished throughout when she was initially evaluated in the office. The patient was brought over here, placed on aggressive pulmonary toilet as well as steroids. Blood pressure 118/66, respiratory rate 18, pulse 102. She is afebrile. Chest x-ray is still pending here and will continue to be monitored carefully accordingly. OBJECTIVE: GENERAL: The patient this morning is alert and oriented x 3. LUNGS: Diminished. She is moving a little bit better air than she was yesterday, but still very short of breath. CARDIOVASCULAR: Regular sinus rhythm. ABDOMEN: Soft, nontender. EXTREMITIES: No clubbing or edema. NEUROLOGIC: Intact. LABORATORY DATA: Show white count of 6, hemoglobin and hematocrit of 11 and 35. Chemistries were all basically within range. The patient otherwise will continue to be monitored carefully, make further evaluation on her steroids as well as adjusting her other medications and make further assessment as indicated. She has also been placed on some Solu-Medrol as well as a shot of Rocephin. PCR from the office is still pending. IMPRESSION: Acute exacerbation of chronic obstructive pulmonary disease with severe bronchospasm. PLAN: As above. VICKI CONNOR MD DR: ALEKSANDR/zane JOB#: [id number] / [id number]
--- NOTE | 2019-08-13 14:20 | RAD ---
EXAM: CHEST PA LATERAL INDICATION: Shortness of air. TECHNIQUE: PA and lateral views COMPARISON: 02/27/2019 FINDINGS: The heart size is normal. The great vessels appear unremarkable. There is no hilar or mediastinal mass. The lungs are clear. Previously evident pulmonary infiltrates have since resolved. There is no pleural effusion or pneumothorax. There are no significant osseous abnormalities. IMPRESSION: No active cardiopulmonary disease. Electronically signed by: Jorge Jackson MD (08/13/2019 2:16 PM) [facility]
[2019-08-13 15:50] VITALS: BP 136/72
[2019-08-13] MEDS: CARVEDILOL 12.5 MG TABLET PO SCH (17:04)
[2019-08-13 18:34] VITALS: BP 127/69
[2019-08-13] MEDS: LACTOBACILLUS RHAMNOSUS GG 1 CAPSULE. PO SCH (20:36)
[2019-08-13] MEDS: ATORVASTATIN CALCIUM 20 MG TABLET PO SCH (20:36)
[2019-08-14] MEDS: IPRATRPIUM/ALBUTEROL 0.5/2.5MG 3 ML NEBU. NEB SCH ×4 (04:42→20:38)
[2019-08-14] MEDS: methylPREDNISolone SOD SUCC PF 40 MG/ML VIAL. IV SCH ×3 (06:00→21:35)
[2019-08-14] MEDS: PANTOPRAZOLE 40 MG TABLET. PO SCH ×2 (06:00→08:16)
[2019-08-14 06:18] VITALS: BP 112/66
[2019-08-14] MEDS: VITAMIN B COMPLEX CAPSULE. PO SCH (08:14)
[2019-08-14] MEDS: MAGNESIUM OXIDE 400 MG TABLET PO SCH (08:14)
[2019-08-14] MEDS: LACTOBACILLUS RHAMNOSUS GG 1 CAPSULE. PO SCH ×2 (08:14→21:35)
[2019-08-14] MEDS: MULTIVITAMIN with MINERAL TABLET. PO SCH (08:14)
[2019-08-14] MEDS: CHOLECALCIFEROL (VITAMIN D3) 1,000 UNIT TABLET PO SCH (08:14)
[2019-08-14] MEDS: OMEGA-3 FATTY ACIDS/FISH OIL 1,000 MG CAPSULE. PO SCH (08:15)
[2019-08-14] MEDS: CARVEDILOL 12.5 MG TABLET PO SCH ×2 (08:15→17:27)
[2019-08-14] MEDS: amLODIPine BESYLATE 5 MG TABLET PO SCH ×2 (08:15→21:35)
[2019-08-14] MEDS: SPIRONOLACTONE 25 MG TABLET PO SCH (08:15)
[2019-08-14] MEDS: VITAMIN E. 400 UNIT CAPSULE. PO SCH (08:15)
[2019-08-14] MEDS: hydroCHLOROthiazide 12.5 MG CAPSULE PO SCH (08:16)
[2019-08-14] MEDS: UBIDECARENONE 50 MG CAPSULE. PO SCH (08:16)
[2019-08-14] MEDS: CALCIUM CARB/VIT D3 500/200 TABLET PO SCH (08:16)
[2019-08-14] MEDS: ASCORBIC ACID 500 MG TABLET PO SCH (08:16)
[2019-08-14] MEDS: ASPIRIN ENTERIC COATED 81 MG TABLET.DR. PO SCH (08:16)
[2019-08-14] MEDS: BALSALAZIDE DISODIUM 750 MG PO SCH ×2 (08:17→21:35)
[2019-08-14] MEDS ORDERED: FERROUS SULFATE 325 MG TABLET. PO SCH (09:00)
[2019-08-14] MEDS ORDERED: LISINOPRIL 20 MG TABLET PO SCH (09:00)
[2019-08-14 10:45] VITALS: BP 111/63
--- NOTE | 2019-08-14 11:22 | RAD ---
CT MAXILLOFACIAL WO CONTRAST DATE: 08/14/2019 9:24 AM INDICATION: Sinus infection. COMPARISON: None. TECHNIQUE: CT images of the paranasal sinuses were obtained without intravenous contrast. Coronal and sagittal reformatted images were performed at a separate workstation and reviewed. One or more of the following dose reduction techniques were utilized: Automated exposure control (AEC), Adjustment of mA and/or kV according to patient size, Use of iterative reconstruction technique such as ASiR, CT scan done according to ALARA and image gently/image wisely FINDINGS: Small amount of frothy secretions in the sphenoid sinus on the left. The maxillary, ethmoid, and frontal sinuses are clear. No significant mucoperiosteal thickening. The osteomeatal units are patent. Nasal septum is deviated to the right. The visualized osseous structures are otherwise normal. The visualized orbits and globes are normal. The visualized brain parenchyma is normal in attenuation. IMPRESSION: Small amount of frothy secretions in the sphenoid sinus on the left, which might represent acute sinusitis in the appropriate clinical setting. Electronically signed by: Nakul Marte MD (08/14/2019 11:19 AM) [id number]
--- NOTE | 2019-08-14 13:40 | RAD ---
Indication: Shortness of air and cough Technique: Static images are obtained of both lungs following inhalation of 19 mCi of xenon-133 and again following IV administration of 5.5 mCi of 99 M technetium MAA. Comparison: Chest x-ray from previous day Findings: There are multiple perfusion defects identified. Some of the defects are better seen on the oblique and lateral perfusion images therefore cannot assess whether they are matched on the anterior and posterior ventilation images. Impression: 1. Perfusion defects are identified with some of these better seen on the oblique and lateral images therefore cannot assess whether they are matched on ventilation. Overall intermediate probability of pulmonary embolus. Electronically signed by: Jose Acuña MD (08/14/2019 1:37 PM) [facility]
[2019-08-14 14:38] VITALS: BP 122/67
--- NOTE | 2019-08-14 16:44 | RAD ---
EXAM: Bilateral lower extremity venous Doppler sonogram. HISTORY: Pain and swelling. Abnormal VQ scan. TECHNIQUE: Obando scale and color Doppler sonographic evaluation of the bilateral lower extremity veins with spectral waveform analysis was performed. FINDINGS: There is normal color flow, normal compressibility and there are normal spectral waveforms in the common femoral, superficial femoral, popliteal, posterior tibial and greater saphenous veins. IMPRESSION: No Doppler evidence of lower extremity deep venous thrombosis. Electronically signed by: Arina Funez MD (08/14/2019 4:41 PM) [id number]
[2019-08-14] MEDS ORDERED: RIVAROXABAN 15 MG TABLET. PO SCH (17:00)
[2019-08-14 19:29] VITALS: BP 105/63
[2019-08-14] MEDS: ATORVASTATIN CALCIUM 20 MG TABLET PO SCH (21:35)
[2019-08-14] MEDS: ALPRAZolam 0.25 MG TABLET PO PRN (21:35)
[2019-08-14] MEDS: LOPERAMIDE 2 MG CAPSULE PO PRN (21:35)
[2019-08-14 22:16] VITALS: BP 116/68
--- NOTE | 2019-08-14 22:43 | PN ---
DATE: 08/14/2019 SUBJECTIVE: The patient is a 73-year-old female who has been having problems with a cough for the last 6-8 weeks. The patient has made some good progress with aggressive pulmonary toilet and IV steroids. She also had a V/Q scan that showed an intermediate probability of a possible blood clot. As a result of that, the patient has been started on some Xarelto and continues to be treated also with IV antibiotic therapy for possible sinus infection. Acute sinusitis is noted on her scan there. The patient otherwise is feeling somewhat improved overall. PHYSICAL EXAMINATION: VITAL SIGNS: Include a blood pressure of 122/67, respiratory rate 18, afebrile, pulse rate of 76. Otherwise, the patient seems to be making good progress overall and we will continue with IV antibiotic therapy and make further evaluation on her as indicated. LUNGS: Diminished throughout, but basically clear than they have been. CARDIOVASCULAR: Regular sinus rhythm. ABDOMEN: Soft, nontender. EXTREMITIES: No clubbing, cyanosis, nor edema. Venous Dopplers are pending. The patient otherwise, acute on top of chronic bronchospasm, possible pulmonary emboli, sinusitis and anemia of chronic disease and elevated D-dimer. The patient continues to be monitored carefully and we will make further evaluation on her per those results. VICKI CONNOR MD DR: ALEKSANDR/zane JOB#: [id number] / [id number]
[2019-08-15] MEDS: IPRATRPIUM/ALBUTEROL 0.5/2.5MG 3 ML NEBU. NEB SCH ×2 (04:45→11:49)
[2019-08-15 05:18] VITALS: BP 119/67
[2019-08-15] MEDS: methylPREDNISolone SOD SUCC PF 40 MG/ML VIAL. IV SCH (06:13)
[2019-08-15] MEDS: ASCORBIC ACID 500 MG TABLET PO SCH (09:00)
[2019-08-15] MEDS ORDERED: CLOPIDOGREL BISULFATE 75 MG TABLET PO SCH (09:00)
[2019-08-15] MEDS: OMEGA-3 FATTY ACIDS/FISH OIL 1,000 MG CAPSULE. PO SCH (09:10)
[2019-08-15] MEDS: CALCIUM CARB/VIT D3 500/200 TABLET PO SCH (09:10)
[2019-08-15] MEDS: VITAMIN E. 400 UNIT CAPSULE. PO SCH (09:10)
[2019-08-15] MEDS: MAGNESIUM OXIDE 400 MG TABLET PO SCH (09:10)
[2019-08-15] MEDS: MULTIVITAMIN with MINERAL TABLET. PO SCH (09:10)
[2019-08-15] MEDS: PANTOPRAZOLE 40 MG TABLET. PO SCH (09:10)
[2019-08-15] MEDS: VITAMIN B COMPLEX CAPSULE. PO SCH (09:10)
[2019-08-15 09:11] VITALS: BP 119/67
[2019-08-15] MEDS: hydroCHLOROthiazide 12.5 MG CAPSULE PO SCH (09:11)
[2019-08-15] MEDS: SPIRONOLACTONE 25 MG TABLET PO SCH (09:11)
[2019-08-15] MEDS: CARVEDILOL 12.5 MG TABLET PO SCH (09:11)
[2019-08-15] MEDS: LACTOBACILLUS RHAMNOSUS GG 1 CAPSULE. PO SCH (09:11)
[2019-08-15] MEDS: CHOLECALCIFEROL (VITAMIN D3) 1,000 UNIT TABLET PO SCH (09:11)
[2019-08-15] MEDS: amLODIPine BESYLATE 5 MG TABLET PO SCH (09:11)
[2019-08-15] MEDS: BALSALAZIDE DISODIUM 750 MG PO SCH (09:12)
[2019-08-15] MEDS: UBIDECARENONE 50 MG CAPSULE. PO SCH (09:12)
[2019-08-15] MEDS ORDERED: PRED-220 PO (09:20)
[2019-08-15] MEDS ORDERED: RIVA15TA PO (09:20)
[2019-08-15] MEDS: LOPERAMIDE 2 MG CAPSULE PO PRN (10:13)
[2019-08-15] MEDS ORDERED: RIVAROXABAN 15 MG TABLET. PO SCH (10:45)
[2019-08-16] MEDS ORDERED: ASPIRIN ENTERIC COATED 81 MG TABLET.DR. PO SCH (09:00)
== END 2019-08-15 12:21 | disposition home or self-care (01) | DRG 190 ==
LOC: 1 SOUTH 15:17
PROVIDERS: ADMIT Family Medicine; ATTEND Family Medicine
DX: J44.1 Chronic obstructive pulmonary disease with (acute) exacerbation (principal); I26.99 Other pulmonary embolism without acute cor pulmonale; J01.90 Acute sinusitis, unspecified; Z88.0 Allergy status to penicillin; Z88.2 Allergy status to sulfonamides; Z88.8 Allergy status to other drugs, medicaments and biological substances; I10 Essential (primary) hypertension; Z90.49 Acquired absence of other specified parts of digestive tract; E78.00 Pure hypercholesterolemia, unspecified; E11.9 Type 2 diabetes mellitus without complications; K21.9 Gastro-esophageal reflux disease without esophagitis; Z81.1 Family history of alcohol abuse and dependence; Z82.49 Family history of ischemic heart disease and other diseases of the circulatory system; D63.8 Anemia in other chronic diseases classified elsewhere
CPT/HCPCS: 36415; 70486; 71046; 78582; 80053; 83880; 85027; 85379; 93970; 94640; 96374; A9540; A9558; J0696; J2920; Q0163

== ENCOUNTER 2019-08-16 03:29 | Emergency (ER) | payer MEDICARE, OTHER ==
[~2019-08-16] VITALS: Ht 147.3 cm; Wt 61.9 kg
[~2019-08-16 03:29] MED LIST changes: +PRED-220 PO; +RIVA15TA PO
[2019-08-16 03:30] VITALS: BP 148/82
--- NOTE | 2019-08-16 04:12 | PHYS DOC ---
Past History Past Medical History: Anxiety, GERD, High Cholesterol, Hypertension, Other Additional Past Medical Histor: CROHNS, OSTEOPOROSIS, RSV Past Surgical History: Cholecystectomy, Hysterectomy Additional Past Surgical Histo: right rotator cuff Smoking: Non-smoker Alcohol Use: None Drug Use: None Adult General Chief Complaint Chief Complaint: HAND PROBLEM HPI HPI Patient is a 73-year-old female who presents to the emergency department for evaluation of right hand pain. She states she was just discharged from the hospital where she was treated for upper respiratory symptoms. She has a small amount of bruising and tenderness to palpation over the dorsum of her right hand where she had her IV site. There is no warmth or erythema or fevers. She has no other acute complaints at this time. Review of Systems Review of Systems Constitutional: Denies fever or chills [] Eyes: Denies change in visual acuity, redness, or eye pain [] Musculoskeletal: Denies back pain or joint pain [] Integument: Denies rash or skin lesions, other than as noted in the history of present illness [] Neurologic: Denies headache, focal weakness or sensory changes [] Allergies Allergies Allergies Coded Allergies Type Severity Reaction Last Updated Verified acetaminophen Allergy Intermediate 03/23/15 Yes propoxyphene Allergy Intermediate 03/23/15 Yes adhesive tape Allergy Unknown 03/23/15 Yes clonidine Allergy Unknown 03/23/15 Yes iodine Allergy Unknown 03/23/15 Yes loratadine Allergy Unknown 03/23/15 Yes magnesium sulfate Allergy Unknown 02/25/19 Yes oxycodone Allergy Unknown 02/25/19 Yes penicillin Allergy Unknown 03/23/15 Yes potassium Allergy Unknown 02/25/19 Yes pseudoephedrine Allergy Unknown 02/25/19 Yes sodium sulfate Allergy Unknown 02/25/19 Yes Physical Exam Physical Exam PHYSICAL EXAM: CONSTITUTIONAL: Well developed, well nourished HEAD: normocephalic, atraumatic EENT: PERRL, EOMI. Conjunctivae normal color, sclerae non-icteric; moist mucous membranes. NECK: Supple, non-tender; no meningismus. LUNGS: Lungs CTA, breathing even and unlabored. Normal air movement. HEART: Regular rate and rhythm, no murmur CHEST: No deformity; non-tender ABDOMEN: The abdomen is soft, and non-tender, no masses or bruits. EXTREM: Normal ROM; no deformity, no calf tenderness. Normal pulses palpable in all extremities. There is no pedal edema. On the dorsum of the right hand, there is approximately silver dollar sized area of soft tissue bruising, without any warmth or erythema. The area is diffusely tender to palpation. The remainder the soft tissues are unremarkable. SKIN: No rash; no diaphoresis NEURO: Alert; normal speech and cognition; CN's grossly intact; strength grossly intact without focal deficit. BACK: No CVA TTP. Current Patient Data Vital Signs Vital Signs Date Time Temp Pulse Resp B/P (MAP) Pulse Ox O2 Delivery O2 Flow Rate FiO2 08/16/19 03:30 97.6 71 20 148/82 (104) 98 Room Air EKG EKG [] Radiology/Procedures Radiology/Procedures [] Course & Med Decision Making Course & Med Decision Making Discussed expectant management, home care plan, use of warm compresses and [id number] analgesics. Dragon Disclaimer Dragon Disclaimer This electronic medical record was generated, in whole or in part, using a voice recognition dictation system. Departure Departure: Impression: Primary Impression: IV infiltration Disposition: HOME, SELF-CARE Condition: STABLE Referrals: VICKI CONNOR MD (PCP) Patient Instructions: Contusion, Infiltration, IV, [id number] JOHN BLACKMON MD Aug 16, 2019 04:12
== END 2019-08-16 04:25 | disposition home or self-care (01) ==
LOC: ER 03:29
DX: T80.89XA Other complications following infusion, transfusion and therapeutic injection, initial encounter (principal); M79.641 Pain in right hand; K21.9 Gastro-esophageal reflux disease without esophagitis; E78.00 Pure hypercholesterolemia, unspecified; I10 Essential (primary) hypertension; F41.9 Anxiety disorder, unspecified; Z88.6 Allergy status to analgesic agent; Z88.8 Allergy status to other drugs, medicaments and biological substances; Z88.5 Allergy status to narcotic agent; Z88.0 Allergy status to penicillin
CPT/HCPCS: 99281

== ENCOUNTER 2019-12-05 12:51 | Observation (INO) | payer MEDICARE, OTHER ==
[~2019-12-05] VITALS: Ht 147.3 cm; Wt 57.6 kg
[2019-12-05] MEDS ORDERED: FAMOTIDINE 20 MG/2 ML VIAL IVP ONE (13:15)
[2019-12-05] MEDS ORDERED: DEXAMETHASONE SOD PHOS 4 MG/ML VIAL IVP ONE (13:15)
[2019-12-05] MEDS ORDERED: IV NORMAL SALINE 1,000ML 1,000 ML IV ONE (13:15)
[2019-12-05] MEDS ORDERED: KETOROLAC 15 MG/ML VIAL. IVP ONE (13:30)
[2019-12-05 13:37] LABS: BASO % 1 % (0-3); EOS # 0.2 x10^3/uL (0.0-0.7); EOS % 3 % (0-3); HEMATOCRIT 39.3 % (36.0-47.0); HEMOGLOBIN 13.2 g/dL (12.0-15.5); LYMPH # 1.6 x10^3/uL (1.0-4.8); LYMPH % 32 % (24-48); MEAN CORPUSCULAR HEMOGLOBIN 31 pg (25-35); MEAN CORPUSCULAR HGB CONC 34 g/dL (31-37); MEAN CORPUSCULAR VOLUME 91 fL (79-100); MONO # 0.8 x10^3/uL (0.0-1.1); MONO % 16 % (0-9); NEUT # 2.4 x10^3uL (1.8-7.7); NEUT % 48 % (31-73); PLATELET COUNT 214 x10^3/uL (140-400); RED BLOOD COUNT 4.33 x10^6/uL (3.50-5.40); RED CELL DISTRIBUTION WIDTH 13.3 % (11.5-14.5); WHITE BLOOD COUNT 5.1 x10^3/uL (4.0-11.0)
[2019-12-05 13:44] LABS: CALCIUM 8.4 mg/dL (8.5-10.1); CREATININE 0.8 mg/dL (0.6-1.0); GFR 69.9; POTASSIUM 3.8 mmol/L (3.5-5.1)
[2019-12-05 13:50] LABS: ALBUMIN 3.6 g/dL (3.4-5.0); ALBUMIN/GLOBULIN RATIO 1.2 (1.0-1.7); MAGNESIUM 2.3 mg/dL (1.8-2.4); TOTAL BILIRUBIN 0.4 mg/dL (0.2-1.0); TOTAL PROTEIN 6.6 g/dL (6.4-8.2)
--- NOTE | 2019-12-05 14:02 | PHYS DOC ---
Past History Past Medical History: Anxiety, GERD, High Cholesterol, Hypertension, Other Additional Past Medical Histor: CROHNS, OSTEOPOROSIS, RSV Past Surgical History: Cholecystectomy, Hysterectomy Additional Past Surgical Histo: right rotator cuff Smoking: Non-smoker Alcohol Use: None Drug Use: None General Adult EDM: Chief Complaint: DIARRHEA HPI: HPI: 74-year-old female with past medical history of Crohn's disease presents with report of cramping abdominal pain and associated diarrhea x 9 days. Describes diarrhea as "runny". Patient does report symptoms similar to prior Crohn's flares. Reports is unable to follow-up with her GI until early December 2019. Patient was seen by her PCP- Dr. Payne just prior to arrival and was send down to ED for further evaluation and treatment with concern that patient may require admission. Denies lightheadedness or dizziness. Denies fever/chills. Denies known sick contacts. Denies recent travel. Review of Systems: Review of Systems: Constitutional: Denies fever or chills Eyes: Denies redness or eye pain HENT: Denies nasal congestion or sore throat Respiratory: Denies cough or shortness of breath Cardiovascular: Denies chest pain or palpitations GI: Reports abdominal pain and diarrhea; denies vomiting : Denies dysuria or hematuria Musculoskeletal: Denies back pain or joint pain Integument: Denies rash or skin lesions Neurologic: Denies headache, focal weakness or sensory changes Complete systems were reviewed and found to be within normal limits, except as documented in this note. Current Medications: Current Meds: Current Medications Medications (Trade) Dose Ordered Sig/Jean Start Time Stop Time Status Last Admin Dose Admin Dexamethasone Sodium Phosphate (Decadron) 10 mg 1X ONCE 12/05/19 13:15 12/05/19 13:16 DC 12/05/19 13:48 10 MG Famotidine (Pepcid Vial) 20 mg 1X ONCE 12/05/19 13:15 12/05/19 13:16 DC 12/05/19 13:53 20 MG Ketorolac Tromethamine (Toradol 15mg Vial) 10 mg 1X ONCE 12/05/19 13:30 12/05/19 13:31 DC 12/05/19 13:54 10 MG Sodium Chloride 1,000 ml @ 1,000 mls/hr 1X ONCE 12/05/19 13:15 12/05/19 14:14 12/05/19 13:39 1,000 MLS/HR Allergies: Allergies: Allergies Coded Allergies Type Severity Reaction Last Updated Verified acetaminophen Allergy Intermediate 03/23/15 Yes propoxyphene Allergy Intermediate 03/23/15 Yes adhesive tape Allergy Unknown 03/23/15 Yes clonidine Allergy Unknown 03/23/15 Yes iodine Allergy Unknown 03/23/15 Yes loratadine Allergy Unknown 03/23/15 Yes magnesium sulfate Allergy Unknown 02/25/19 Yes oxycodone Allergy Unknown 02/25/19 Yes penicillin Allergy Unknown 03/23/15 Yes potassium Allergy Unknown 02/25/19 Yes pseudoephedrine Allergy Unknown 02/25/19 Yes sodium sulfate Allergy Unknown 02/25/19 Yes Physical Exam: PE: Constitutional: Well developed, well nourished, no acute distress, non-toxic appearance HENT: Normocephalic, atraumatic, oropharynx tacky Eyes: Conjunctiva normal, no discharge Neck: Normal range of motion, no tenderness, supple Lungs & Thorax: No respiratory distress, equal chest rise and fall Abdomen: Soft, no tenderness, no guarding/rebound tenderness/distention Skin: Warm, dry, no erythema, no rash Back: No tenderness, no CVA tenderness Extremities: No tenderness, ROM intact, no edema Neurologic: Alert and oriented X 3, no focal deficits noted Psychologic: Affect normal, judgment normal Current Patient Data: Labs: Laboratory Tests Test 12/05/19 13:21 White Blood Count 5.1 x10^3/uL (4.0-11.0) Red Blood Count 4.33 x10^6/uL (3.50-5.40) Hemoglobin 13.2 g/dL (12.0-15.5) Hematocrit 39.3 % (36.0-47.0) Mean Corpuscular Volume 91 fL (79-100) Mean Corpuscular Hemoglobin 31 pg (25-35) Mean Corpuscular Hemoglobin Concent 34 g/dL (31-37) Red Cell Distribution Width 13.3 % (11.5-14.5) Platelet Count 214 x10^3/uL (140-400) Neutrophils (%) (Auto) 48 % (31-73) Lymphocytes (%) (Auto) 32 % (24-48) Monocytes (%) (Auto) 16 % (0-9) H Eosinophils (%) (Auto) 3 % (0-3) Basophils (%) (Auto) 1 % (0-3) Neutrophils # (Auto) 2.4 x10^3uL (1.8-7.7) Lymphocytes # (Auto) 1.6 x10^3/uL (1.0-4.8) Monocytes # (Auto) 0.8 x10^3/uL (0.0-1.1) Eosinophils # (Auto) 0.2 x10^3/uL (0.0-0.7) Basophils # (Auto) 0.0 x10^3/uL (0.0-0.2) Sodium Level 142 mmol/L (136-145) Potassium Level 3.8 mmol/L (3.5-5.1) Chloride Level 105 mmol/L (98-107) Carbon Dioxide Level 29 mmol/L (21-32) Anion Gap 8 (6-14) Blood Urea Nitrogen 9 mg/dL (7-20) Creatinine 0.8 mg/dL (0.6-1.0) Estimated GFR (Cockcroft-Gault) 69.9 BUN/Creatinine Ratio 11 (6-20) Glucose Level 128 mg/dL (70-99) H Lactic Acid Level 1.2 mmol/L (0.4-2.0) Calcium Level 8.4 mg/dL (8.5-10.1) L Magnesium Level 2.3 mg/dL (1.8-2.4) Total Bilirubin 0.4 mg/dL (0.2-1.0) Aspartate Amino Transferase (AST) 28 U/L (15-37) Alanine Aminotransferase (ALT) 23 U/L (14-59) Alkaline Phosphatase 60 U/L (46-116) Total Protein 6.6 g/dL (6.4-8.2) Albumin 3.6 g/dL (3.4-5.0) Albumin/Globulin Ratio 1.2 (1.0-1.7) Lipase 80 U/L (73-393) EKG: EKG: [] Radiology/Procedures: Radiology/Procedures: [] Course & Med Decision Making: Course & Med Decision Making Pertinent Labs studies reviewed. (See chart for details) Patient presents after being seen in Dr. Payne's (PCP) office just prior to arrival. Patient has been having diffuse diarrhea that has been intractable. There was concern for significant dehydration and therefore patient sent to the ER for further evaluation. Abdomen non-peritoneal. Patient does have a history of Crohn's disease for which she has had multiple images in the past. Given abdomen non-peritoneal will hold CT imaging at this time. Labs obtained and posted to chart. WBC and lactic acid within normal limits. Electrolytes stable. UA with signs of contamination therefore antibiotics held. Discussed case with Dr. Payne (PCP) who requests observation admission. Discussed findings and plan with patient, who acknowledges understanding and agreement. Dragon Disclaimer: Dragon Disclaimer: This electronic medical record was generated, in whole or in part, using a voice recognition dictation system. Departure Departure: Impression: Primary Impression: Intractable diarrhea Additional Impressions: Dehydration Hx of Crohn's disease Disposition: ADMITTED INPATIENT (observation status) Admitting Physician: Juanito Payne Condition: STABLE Referrals: JUANTIO PAYNE MD (PCP) Justification of Admission: Justification of Admission: Justification of Admission Dx: Yes (observation) Comments: Elderly, dehydration, intractable diarrhea, hx of Crohn's disease JASKARAN PRADO DO Dec 05, 2019 14:02
[2019-12-05] MEDS: IV NORMAL SALINE 1,000ML 1,000 ML IV SCH ×2 (14:03→17:40)
[2019-12-05 14:05] LABS: BILIRUBIN,URINE NEG (NEG); CLARITY,URINE HAZY; COLOR,URINE YELLOW; GLUCOSE,URINE NEG (NEG); UROBILINOGEN,URINE 0.2 mg/dL (0.2 mg/dL)
[2019-12-05 14:06] LABS: BACTERIA,URINE 0 /HPF (0-FEW); NITRITE,URINE NEG (NEG); SQUAMOUS EPITHELIAL CELL,UR MANY /LPF
[2019-12-05 15:50] VITALS: BP 122/70
[2019-12-05] MEDS ORDERED: CLOP75TA PO (16:40)
[2019-12-05 20:00] VITALS: BP 112/68
[2019-12-05] MEDS ORDERED: BALS750C6 PO (20:37)
[2019-12-05] MEDS ORDERED: ZOLPIDEM 5 MG TABLET. PO PRN (20:45)
[2019-12-05] MEDS ORDERED: diphenhydrAMINE HCL 25 MG CAPSULE PO PRN (20:45)
[2019-12-05] MEDS ORDERED: BALSALAZIDE DISODIUM 1500 MG PO SCH (21:00)
[2019-12-05] MEDS ORDERED: BALSALAZIDE DISODIUM 750 MG PO SCH (21:00)
[2019-12-05] MEDS ORDERED: BENAZEPRIL HCL PO SCH (21:00)
[2019-12-05] MEDS: ALPRAZolam 0.25 MG TABLET PO PRN (21:42)
--- NOTE | 2019-12-05 21:43 | RAD ---
Acute abdominal series to include a PA chest 12/05/2019 Clinical History: Abdominal pain. An AP portable digital radiograph of the chest was obtained. Supine and erect AP portable digital radiographs of the abdomen/pelvis were obtained. Comparison study is dated 08/13/2019. The cardiac silhouette is normal in size and configuration. The thoracic aorta is tortuous. Atherosclerotic calcification of the thoracic aorta is seen. No pulmonary infiltrate is seen. No pleural effusion or pneumothorax is noted. Surgical clips overlie the right upper quadrant abdomen consistent with a cholecystectomy. The abdominal bowel gas pattern is nonobstructive. There is no evidence of free air. No radiopaque calculus is seen. Degenerative changes are seen involving the thoracic spine the lumbar spine and both hips. Impression: Nonobstructive bowel gas pattern. Electronically signed by: Buzz Islas MD (12/05/2019 9:40 PM) [id number]
[2019-12-06 00:30] VITALS: BP 98/59
[2019-12-06] MEDS: IV NORMAL SALINE 1,000ML 1,000 ML IV SCH (02:49)
[2019-12-06 05:34] VITALS: BP 100/63
[2019-12-06] MEDS ORDERED: PANTOPRAZOLE 40 MG TABLET. PO SCH (07:30)
[2019-12-06] MEDS ORDERED: CARVEDILOL 6.25 MG TABLET PO SCH (08:00)
[2019-12-06 08:21] VITALS: BP 113/64
[2019-12-06] MEDS: ALPRAZolam 0.25 MG TABLET PO PRN (08:33)
[2019-12-06] MEDS ORDERED: CLOPIDOGREL BISULFATE 75 MG TABLET PO SCH (09:00)
[2019-12-06] MEDS ORDERED: amLODIPine BESYLATE 5 MG TABLET PO SCH (09:00)
[2019-12-06] MEDS ORDERED: predniSONE 10 MG TABLET PO SCH (09:00)
[2019-12-06] MEDS ORDERED: SPIRONOLACTONE 25 MG TABLET PO SCH (09:00)
[2019-12-06] MEDS ORDERED: predniSONE 20 MG TABLET PO SCH (09:00)
[2019-12-06] MEDS ORDERED: MAGNESIUM OXIDE 400 MG TABLET PO SCH (09:00)
[2019-12-06 09:47] VITALS: BP 106/63
[2019-12-06] MEDS ORDERED: FUROSEMIDE 20 MG/2 ML VIAL IVP ONE (10:30)
[2019-12-06] MEDS ORDERED: RIVAROXABAN 15 MG TABLET. PO SCH (17:00)
== END 2019-12-06 13:40 | disposition home or self-care, planned readmission (81) ==
LOC: ER 12:51 → 1 SOUTH 13:55 → INTOOBSV 13:55
PROVIDERS: ADMIT Family Medicine; ATTEND Family Medicine
DX: R19.7 Diarrhea, unspecified (principal); E86.0 Dehydration; K50.90 Crohn's disease, unspecified, without complications; I10 Essential (primary) hypertension; E78.5 Hyperlipidemia, unspecified; K21.9 Gastro-esophageal reflux disease without esophagitis; M81.0 Age-related osteoporosis without current pathological fracture; E78.00 Pure hypercholesterolemia, unspecified; Z79.899 Other long term (current) drug therapy
CPT/HCPCS: 36415; 74022; 80053; 81001; 82947; 83605; 83690; 83735; 85025; 85610; 85730; 87086; 96361; 96374; 96375; 99284; G0378; G0379; J1100; J1885; J3490; J7030; J7512; 99285-25

== ENCOUNTER 2019-12-07 21:39 | Emergency (ER) | payer MEDICARE, OTHER ==
[~2019-12-07] VITALS: Ht 147.3 cm; Wt 61.1 kg
[~2019-12-07 21:39] MED LIST changes: +BALS750C6 PO; +CLOP75TA PO
[2019-12-07 22:00] VITALS: BP 126/63
--- NOTE | 2019-12-07 22:21 | PHYS DOC ---
Past History Past Medical History: Anxiety, GERD, High Cholesterol, Hypertension, Other Additional Past Medical Histor: CROHNS, OSTEOPOROSIS, RSV Past Surgical History: Cholecystectomy, Hysterectomy Additional Past Surgical Histo: right rotator cuff Smoking: Non-smoker Alcohol Use: None Drug Use: None General Adult EDM: Chief Complaint: DIARRHEA HPI: HPI: Patient is a 74-year-old female who presents with complaint of continued diarrhea. Patient had been admitted into the hospital for diarrhea and was discharged home yesterday. Patient states she has had diarrhea all day. She decided to take some Imodium right before coming to the emergency room because she was afraid she would not be able to hold her stool until she got to the emergency room. Patient did not take any diarrhea medicine throughout the entire day until deciding to come to the ER. Patient does complain of cramping pain in her left lower abdomen. [] Review of Systems: Review of Systems: Constitutional: Denies fever or chills Respiratory: Denies cough or shortness of breath Cardiovascular: Denies chest pain or edema GI: Complains of abdominal cramping and diarrhea Neurologic: Denies headache, focal weakness or sensory changes Heart Score: Risk Factors: Risk Factors: DM, Current or recent (<one month) smoker, HTN, HLP, family history of CAD, obesity. Risk Scores: Score 0 - 3: 2.5% MACE over next 6 weeks - Discharge Home Score 4 - 6: 20.3% MACE over next 6 weeks - Admit for Clinical Observation Score 7 - 10: 72.7% MACE over next 6 weeks - Early Invasive Strategies Allergies: Allergies: Allergies Coded Allergies Type Severity Reaction Last Updated Verified iodine Allergy Severe 12/07/19 Yes acetaminophen Allergy Intermediate 12/07/19 Yes adhesive tape Allergy Intermediate 12/07/19 Yes clonidine Allergy Intermediate 12/07/19 Yes loratadine Allergy Intermediate 12/07/19 Yes magnesium sulfate Allergy Intermediate 12/07/19 Yes oxycodone Allergy Intermediate 12/07/19 Yes penicillin Allergy Intermediate 12/07/19 Yes potassium Allergy Intermediate 12/07/19 Yes propoxyphene Allergy Intermediate 12/07/19 Yes pseudoephedrine Allergy Intermediate 12/07/19 Yes sodium sulfate Allergy Intermediate 12/07/19 Yes Physical Exam: PE: Constitutional: Well developed, well nourished, no acute distress, non-toxic appearance. [] HENT: Normocephalic, atraumatic, bilateral external ears normal, oropharynx moist, no oral exudates, nose normal. [] Eyes: PERRLA, EOMI, conjunctiva normal, no discharge. [] Neck: Normal range of motion, no tenderness, supple, no stridor. [] Cardiovascular: Regular rate and rhythm [] Lungs & Thorax: Bilateral breath sounds clear to auscultation [] Abdomen: Bowel sounds normal, soft, no tenderness. [] Skin: Warm, dry, no erythema, no rash. [] Extremities: No tenderness, no cyanosis, no clubbing, ROM intact. [] Neurologic: Alert and oriented X 3, no focal deficits noted. [] Current Patient Data: Vital Signs: Vital Signs Date Time Temp Pulse Resp B/P (MAP) Pulse Ox O2 Delivery O2 Flow Rate FiO2 12/07/19 22:00 97.6 58 20 126/63 (84) 100 Room Air EKG: EKG: [] Radiology/Procedures: Radiology/Procedures: [] Course & Med Decision Making: Course & Med Decision Making Pertinent Labs and Imaging studies reviewed. (See chart for details) [] Dragon Disclaimer: Dragon Disclaimer: This electronic medical record was generated, in whole or in part, using a voice recognition dictation system. Departure Departure: Impression: Primary Impression: Diarrhea Qualified Codes: R19.7 - Diarrhea, unspecified Disposition: 01 HOME/RESIDENCE PRIOR TO ADM Condition: STABLE Referrals: VICKI CONNOR MD (PCP) Patient Instructions: Diarrhea Scripts Diphenoxylate Hcl/Atropine (LOMOTIL TABLET) 1 Each Tablet 1 TAB PO TID PRN for DIARRHEA, #15 TAB Prov: MIRANDA LEROY Jr. DO 12/08/19 Justification of Admission: Justification of Admission: Justification of Admission Dx: Comment: (Not applicable) MIRANDA LEROY Jr. DO Dec 07, 2019 22:21
[2019-12-07] MEDS ORDERED: DIPHENOXYLATE/ATROPINE TABLET. PO ONE (23:00)
[2019-12-07] MEDS ORDERED: IV NORMAL SALINE 1,000ML 1,000 ML IV SCH (23:00)
[2019-12-07 23:56] LABS: BASO % 1 % (0-3); EOS # 0.1 x10^3/uL (0.0-0.7); EOS % 1 % (0-3); HEMATOCRIT 35.5 % (36.0-47.0); LYMPH # 2.3 x10^3/uL (1.0-4.8); LYMPH % 32 % (24-48); MEAN CORPUSCULAR HEMOGLOBIN 30 pg (25-35); MEAN CORPUSCULAR HGB CONC 34 g/dL (31-37); MEAN CORPUSCULAR VOLUME 90 fL (79-100); MONO # 0.9 x10^3/uL (0.0-1.1); MONO % 12 % (0-9); NEUT # 3.9 x10^3uL (1.8-7.7); NEUT % 54 % (31-73); PLATELET COUNT 195 x10^3/uL (140-400); RED BLOOD COUNT 3.93 x10^6/uL (3.50-5.40); RED CELL DISTRIBUTION WIDTH 13.5 % (11.5-14.5); WHITE BLOOD COUNT 7.2 x10^3/uL (4.0-11.0)
[2019-12-08 00:14] LABS: CALCIUM 7.6 mg/dL (8.5-10.1); CREATININE 0.7 mg/dL (0.6-1.0); GFR 81.6; POTASSIUM 3.5 mmol/L (3.5-5.1)
[2019-12-08 00:22] LABS: ALBUMIN 3.2 g/dL (3.4-5.0); ALBUMIN/GLOBULIN RATIO 1.3 (1.0-1.7); TOTAL BILIRUBIN 0.3 mg/dL (0.2-1.0); TOTAL PROTEIN 5.7 g/dL (6.4-8.2)
[2019-12-08 00:42] LABS: BILIRUBIN,URINE NEG (NEG); CLARITY,URINE CLEAR; COLOR,URINE YELLOW; GLUCOSE,URINE NEG (NEG); NITRITE,URINE NEG (NEG); RBC,URINE RARE /HPF (0-2); UROBILINOGEN,URINE 0.2 mg/dL (0.2 mg/dL)
[2019-12-08 00:43] LABS: BACTERIA,URINE FEW /HPF (0-FEW); SQUAMOUS EPITHELIAL CELL,UR OCC /LPF
[2019-12-08] MEDS ORDERED: DIPH1TAB PO (01:00)
== END 2019-12-08 01:00 | disposition home or self-care (01) ==
LOC: ER 21:39
DX: R19.7 Diarrhea, unspecified (principal); R10.32 Left lower quadrant pain; K21.9 Gastro-esophageal reflux disease without esophagitis; E78.00 Pure hypercholesterolemia, unspecified; I10 Essential (primary) hypertension; Z90.49 Acquired absence of other specified parts of digestive tract; Z90.710 Acquired absence of both cervix and uterus; Z88.8 Allergy status to other drugs, medicaments and biological substances; Z88.6 Allergy status to analgesic agent; Z88.0 Allergy status to penicillin; Z88.5 Allergy status to narcotic agent
CPT/HCPCS: 36415; 80053; 81001; 83690; 85025; 87177; 87209; 87493; 96360; 99283; J7030

== ENCOUNTER 2019-12-12 13:05 | Observation (INO) | payer MEDICARE, OTHER ==
[~2019-12-12] VITALS: Ht 147.3 cm; Wt 58.9 kg
[~2019-12-12 13:05] MED LIST changes: +DIPH1TAB PO
--- NOTE | 2019-12-12 13:19 | PHYS DOC ---
Past History Past Medical History: Anxiety, Diabetes, GERD, High Cholesterol, Hypertension, Pneumonia, Other Additional Past Medical Histor: CROHNS, OSTEOPOROSIS, RSV , "borderline diab" Past Surgical History: Appendectomy, Cholecystectomy, Hysterectomy, Other Additional Past Surgical Histo: right rotator cuff, adhesions Smoking: Non-smoker Alcohol Use: None Drug Use: None General Adult EDM: Chief Complaint: ABDOMINAL PAIN HPI: HPI: Patient is a 74-year-old female presenting to the ED with a chief complaint of abdominal pain. Patient states that the pain is been present for the last few days and was seen in the ER with diarrhea on December 14. Patient does state that she has a history of Crohn's and hypertension. Patient states that she sees Dr. Arevalo for GI consultation. Patient states that the pain has been worse and she called her PCP Dr. Kilgore who told her to come to the ER. Review of Systems: Review of Systems: Constitutional: Denies fever or chills Eyes: Denies change in visual acuity HENT: Denies nasal congestion or sore throat Respiratory: Denies cough or shortness of breath Cardiovascular: Denies chest pain or edema GI: Complains of right-sided abdominal pain : Denies dysuria Musculoskeletal: Denies back pain or joint pain Neurologic: Denies headache, focal weakness or sensory changes Heart Score: Risk Factors: Risk Factors: DM, Current or recent (<one month) smoker, HTN, HLP, family history of CAD, obesity. Risk Scores: Score 0 - 3: 2.5% MACE over next 6 weeks - Discharge Home Score 4 - 6: 20.3% MACE over next 6 weeks - Admit for Clinical Observation Score 7 - 10: 72.7% MACE over next 6 weeks - Early Invasive Strategies Allergies: Allergies: Allergies Coded Allergies Type Severity Reaction Last Updated Verified iodine Allergy Severe 12/07/19 Yes acetaminophen Allergy Intermediate 12/07/19 Yes adhesive tape Allergy Intermediate 12/07/19 Yes clonidine Allergy Intermediate 12/07/19 Yes loratadine Allergy Intermediate 12/07/19 Yes magnesium sulfate Allergy Intermediate 12/07/19 Yes oxycodone Allergy Intermediate 12/07/19 Yes penicillin Allergy Intermediate 12/07/19 Yes potassium Allergy Intermediate 12/07/19 Yes propoxyphene Allergy Intermediate 12/07/19 Yes pseudoephedrine Allergy Intermediate 12/07/19 Yes sodium sulfate Allergy Intermediate 12/07/19 Yes Physical Exam: PE: Constitutional: Well developed, well nourished, no acute distress, non-toxic appearance. [] HENT: Normocephalic, atraumatic Eyes: EOMI Neck: Normal range of motion, Supple Cardiovascular:Heart rate regular rhythm Lungs & Thorax: Bilateral breath sounds clear to auscultation [] Abdomen: Tenderness in the right abdomen. No focal abdominal tenderness. Extremities: No tenderness, ROM intact Neurologic: Alert and oriented X 3 EKG: EKG: [] Radiology/Procedures: Radiology/Procedures: [] Impressions: CT Abd/Pelvis: IMPRESSION: No acute abnormality of the abdomen or pelvis. Course & Med Decision Making: Course & Med Decision Making Pertinent Labs and Imaging studies reviewed. (See chart for details) Ordered labs, UA, CT abdomen pelvis without contrast, IV fluids, morphine 4 mg IV, Zofran 4 mg IV. Labs are within normal limits. CT does not show any acute intra-abdominal process. Patient still complains of abdominal pain. I discussed case with Dr. Kilgore who recommends that patient be admitted to observation. Discussed results and plan of care with patient. Rd Disclaimer: Rd Disclaimer: This electronic medical record was generated, in whole or in part, using a voice recognition dictation system. Departure Departure: Impression: Primary Impression: Intractable abdominal pain Additional Impressions: Diarrhea History of Crohn's disease Disposition: ADMITTED INPATIENT Admitting Physician: Juanito Connor Condition: IMPROVED Referrals: JUANITO CONNOR MD (PCP) Justification of Admission: Justification of Admission: Justification of Admission Dx: Yes Comments: Intractable abdominal pain, Diarrhea MARVIN TIAN DO Dec 12, 2019 13:19
[2019-12-12] MEDS ORDERED: ONDANSETRON PF 4 MG/2 ML VIAL. IVP ONE (13:45)
[2019-12-12] MEDS ORDERED: MORPHINE SULFATE 4 MG/ML DISP.SYRIN. IV ONE ×2 (13:45→16:15)
[2019-12-12] MEDS ORDERED: IV NORMAL SALINE 1,000ML 1,000 ML IV ONE (13:45)
[2019-12-12 13:51] LABS: BASO % 1 % (0-3); EOS # 0.1 x10^3/uL (0.0-0.7); EOS % 2 % (0-3); HEMATOCRIT 39.5 % (36.0-47.0); HEMOGLOBIN 13.1 g/dL (12.0-15.5); LYMPH # 1.3 x10^3/uL (1.0-4.8); LYMPH % 25 % (24-48); MEAN CORPUSCULAR HEMOGLOBIN 30 pg (25-35); MEAN CORPUSCULAR HGB CONC 33 g/dL (31-37); MEAN CORPUSCULAR VOLUME 90 fL (79-100); MONO # 0.6 x10^3/uL (0.0-1.1); MONO % 12 % (0-9); NEUT # 3.1 x10^3uL (1.8-7.7); NEUT % 60 % (31-73); PLATELET COUNT 203 x10^3/uL (140-400); RED BLOOD COUNT 4.38 x10^6/uL (3.50-5.40); RED CELL DISTRIBUTION WIDTH 13.3 % (11.5-14.5); WHITE BLOOD COUNT 5.2 x10^3/uL (4.0-11.0)
[2019-12-12 14:00] LABS: CALCIUM 8.5 mg/dL (8.5-10.1); CREATININE 0.9 mg/dL (0.6-1.0)
[2019-12-12 14:06] LABS: ALBUMIN 3.2 g/dL (3.4-5.0); ALBUMIN/GLOBULIN RATIO 1.1 (1.0-1.7); TOTAL BILIRUBIN 0.4 mg/dL (0.2-1.0); TOTAL PROTEIN 6.1 g/dL (6.4-8.2)
--- NOTE | 2019-12-12 14:16 | RAD ---
CT STUDY OF THE ABDOMEN AND PELVIS WITHOUT CONTRAST CLINICAL INDICATIONS: Abdominal pain. History of Crohn's disease TECHNIQUE: Noncontrast helical CT scanning of the abdomen and pelvis was performed. Without contrast, the sensitivity to detect organ pathology and GI tract pathology is decreased. PQRS compliance Statement One or more of the following individualized dose reduction techniques were utilized for this study: 1. Automated exposure control 2. Adjustment of the mA and/or kV according to patient size 3. Use of iterative reconstruction technique COMPARISON: May 22, 2017. FINDINGS: The liver is homogeneous in appearance on this noncontrast study. The spleen is not enlarged. There is diffuse fatty atrophy of the pancreas. Gallbladder is surgically absent. No extrahepatic biliary ductal dilatation is seen. No adrenal mass is evident. Again seen is ill-defined hypodense area of the mid aspect of the right kidney demonstrates Hounsfield unit measurements of 2 and measures 10 mm in size and is unchanged. This is consistent with a simple cyst. Tiny focus of fat or angiomyolipoma is seen adjacent to this area. These are incidental findings and no further follow-up is needed. No urinary tract stone or hydronephrosis or hydroureter is seen. Urinary bladder wall is smooth. Calcified atheromatous disease of the abdominal aorta is seen. No focal aneurysmal dilatation is seen. No enlarged abdominal or pelvic lymphadenopathy is evident. No obstructive bowel pattern is seen. No diverticulitis is seen.There are no CT findings of appendicitis. No free air or free fluid or mesenteric edema is seen. Uterus is surgically absent. No dominant ovarian cyst or mass is seen. No lung base infiltrate is seen. No lytic process is seen. IMPRESSION: No acute abnormality of the abdomen or pelvis. Electronically signed by: Jb Red MD (12/12/2019 2:13 PM) [id number]
--- NOTE | 2019-12-12 15:35 | NUR ---
The patient, CELIA BOSCH, 74 y/o, F admitted by VICKI CONNOR MD, was given written information regarding hospital policies, unit procedures and contact persons. Valuables were checked and left with patient. Pt is stable and complains of 8/10 abdominal pain and states her diarrhea has resolved. Pt is in bed with a pillow and blanket.
[2019-12-12 15:44] VITALS: BP 126/70
--- NOTE | 2019-12-12 16:10 | NUR ---
called DR. Payne for orders for pain medicine, and to continue home medications.
[2019-12-12] MEDS ORDERED: SULF500T7 PO (16:19)
[2019-12-12] MEDS ORDERED: ZOLPIDEM 5 MG TABLET. PO PRN (17:45)
[2019-12-12] MEDS ORDERED: diphenhydrAMINE HCL 25 MG CAPSULE PO PRN (17:45)
[2019-12-12] MEDS: CARVEDILOL 6.25 MG TABLET PO SCH (18:29)
[2019-12-12 19:20] VITALS: BP 95/51
[2019-12-12] MEDS: ALPRAZolam 0.25 MG TABLET PO PRN (20:28)
[2019-12-12] MEDS: sulfaSALAzine 500 MG TABLET PO SCH (20:29)
[2019-12-12] MEDS ORDERED: ATORVASTATIN CALCIUM 10 MG TABLET. PO SCH (21:00)
[2019-12-12 22:28] VITALS: BP 97/58
--- NOTE | 2019-12-13 05:24 | NUR ---
Pt complained of midline abdominal pain rated 8/10 and received 4mg IVP of Morphine. Pt responded well to morphine and slept comfortably throughout the night.
[2019-12-13 06:19] VITALS: BP 99/52
[2019-12-13] MEDS ORDERED: PANTOPRAZOLE 40 MG TABLET. PO SCH (07:30)
[2019-12-13] MEDS: CARVEDILOL 6.25 MG TABLET PO SCH (08:00)
[2019-12-13] MEDS ORDERED: CLOPIDOGREL BISULFATE 75 MG TABLET PO SCH (09:00)
[2019-12-13] MEDS ORDERED: SPIRONOLACTONE 25 MG TABLET PO SCH (09:00)
[2019-12-13] MEDS: sulfaSALAzine 500 MG TABLET PO SCH (09:00)
[2019-12-13] MEDS ORDERED: amLODIPine BESYLATE 5 MG TABLET PO SCH (09:00)
[2019-12-13] MEDS: ALPRAZolam 0.25 MG TABLET PO PRN (09:54)
[2019-12-13 09:58] VITALS: BP 102/54
--- NOTE | 2019-12-13 13:30 | NUR ---
NSG NOTE; NO ABD PAIN AFTER EATNG TWO MEALS, REGULAR CONSISTENCY DISCHARGE ORDER NOTED
--- NOTE | 2019-12-13 14:01 | NUR ---
NSG NOTE; DISCHARGE VERBAL AND WRITTEN DISCHARGE INSTRUCTIONS GIVEN TO PT WITH VERBAL UNDERSTANDING DISCHARGED TO HOME AT 1335 VIA AMB ACCOMP BY
== END 2019-12-13 13:35 | disposition home or self-care (01) ==
LOC: ER 13:05 → 1 SOUTH 15:34 → INTOOBSV 15:34
PROVIDERS: ADMIT Family Medicine; ATTEND Family Medicine
DX: R10.9 Unspecified abdominal pain (principal); R19.7 Diarrhea, unspecified; K50.90 Crohn's disease, unspecified, without complications; F41.9 Anxiety disorder, unspecified; E11.9 Type 2 diabetes mellitus without complications; K21.9 Gastro-esophageal reflux disease without esophagitis; E78.00 Pure hypercholesterolemia, unspecified; I10 Essential (primary) hypertension; M81.0 Age-related osteoporosis without current pathological fracture; Z79.899 Other long term (current) drug therapy
CPT/HCPCS: 36415; 74176; 80053; 82947; 83690; 85025; 96361; 96374; 96375; 96376; 99284; G0378; J2270; J2405; J7030; G0379; 99285-25

== ENCOUNTER 2020-03-18 05:30 | Inpatient (IN) | payer MEDICARE, OTHER ==
[~2020-03-18] VITALS: Ht 147.3 cm; Wt 52.6 kg
[~2020-03-18 05:30] MED LIST changes: +AMLO-186 PO; -AMLO5TAB10 PO; +SULF500T7 PO
--- NOTE | 2020-03-18 06:00 | PHYS DOC ---
Past History Past Medical History: Anxiety, Diabetes, GERD, High Cholesterol, Hypertension, Pneumonia, Other Additional Past Medical Histor: CROHNS, OSTEOPOROSIS, RSV , "borderline diab" (KARLEY PEDERSEN DO) Past Surgical History: Appendectomy, Cholecystectomy, Hysterectomy, Other Additional Past Surgical Histo: right rotator cuff, adhesions (KARLEY PEDERSEN DO) Smoking: Non-smoker Alcohol Use: None Drug Use: None (KARLEY PEDERSEN DO) General Adult EDM: Chief Complaint: HIP PAIN HPI: HPI: 74-year-old female presents with right hip pain. Patient states that her pain started yesterday in the morning and is increased over the last 24 hours. She cannot find any comfortable position. She cannot sit on it she cannot lay down. She is standing in the room during my interview. She denies any falls or trauma. She has Crohn disease and was recently started on a medication called Creon. This only thing that is been different for her. Pain is in the posterior aspect of the hip across the buttocks. She is getting some radiation down her right leg. (KARLEY PEDERSEN DO) Review of Systems: Review of Systems: Constitutional: Denies fever or chills Eyes: Denies change in visual acuity HENT: Denies nasal congestion or sore throat Respiratory: Denies cough or shortness of breath Cardiovascular: Denies chest pain or edema GI: Denies abdominal pain, nausea, vomiting, bloody stools or diarrhea : Denies dysuria Musculoskeletal: Right hip pain Integument: Denies rash Neurologic: Denies headache, focal weakness or sensory changes Endocrine: Denies polyuria or polydipsia Lymphatic: Denies swollen glands Psychiatric: Denies depression or anxiety (KARLEY PEDERSEN DO) Heart Score: Risk Factors: Risk Factors: DM, Current or recent (<one month) smoker, HTN, HLP, family history of CAD, obesity. Risk Scores: Score 0 - 3: 2.5% MACE over next 6 weeks - Discharge Home Score 4 - 6: 20.3% MACE over next 6 weeks - Admit for Clinical Observation Score 7 - 10: 72.7% MACE over next 6 weeks - Early Invasive Strategies (KARLEY PEDERSEN DO) Current Medications: Current Meds: Current Medications Medications (Trade) Dose Ordered Sig/Jean Start Time Stop Time Status Last Admin Dose Admin Sodium Chloride 500 ml @ 0 mls/hr 1X ONCE 03/18/20 06:00 03/18/20 06:01 UNV (KARLEY PEDERSEN DO) Allergies: Allergies: Allergies Coded Allergies Type Severity Reaction Last Updated Verified iodine Allergy Severe 12/07/19 Yes acetaminophen Allergy Intermediate 12/07/19 Yes adhesive tape Allergy Intermediate 12/07/19 Yes clonidine Allergy Intermediate 12/07/19 Yes loratadine Allergy Intermediate 12/07/19 Yes magnesium sulfate Allergy Intermediate 12/07/19 Yes oxycodone Allergy Intermediate N/V 12/12/19 Yes penicillin Allergy Intermediate 12/07/19 Yes potassium Allergy Intermediate 12/07/19 Yes propoxyphene Allergy Intermediate 12/07/19 Yes pseudoephedrine Allergy Intermediate 12/07/19 Yes sodium sulfate Allergy Intermediate 12/07/19 Yes (KARLEY PEDERSEN DO) Physical Exam: PE: Constitutional: Well developed, well nourished, in pain, non-toxic appearance. [] HENT: Normocephalic, atraumatic, bilateral external ears normal, oropharynx moist, no oral exudates, nose normal. [] Eyes: PERRLA, EOMI, conjunctiva normal, no discharge. [] Neck: Normal range of motion, no tenderness, supple, no stridor. [] Cardiovascular: Heart rate regular rhythm, no murmur [] Lungs & Thorax: Bilateral breath sounds clear to auscultation [] Abdomen: Bowel sounds normal, soft, no tenderness, no masses, no pulsatile masses. [] Skin: Warm, dry, no erythema, no rash. [] Back: No tenderness, no CVA tenderness. [] Extremities: Tenderness over the central right buttocks, no obvious deformity. [] Neurologic: Alert and oriented X 3, normal motor function, normal sensory function, no focal deficits noted. [] Psychologic: Affect normal, judgement normal, mood normal. [] (KARLEY PEDERSEN DO) EKG: EKG: [] (KARLEY PEDERSEN DO) Radiology/Procedures: Radiology/Procedures: [] (KARLEY PEDERSEN DO) Course & Med Decision Making: Course & Med Decision Making Pertinent Labs and Imaging studies reviewed. (See chart for details) Her work-up is pending. I am signing the patient out to Dr. Chicas at 0600. [] (KARLEY PEDERSEN DO) Course & Med Decision Making Assumed care of patient at checkout from Dr. Pedersen. At checkout x-rays and work-up was pending. Patient is requesting something for pain. I did order her several different medications to help with her pain. X-rays appear normal at this time. She continues to have pain which appears to be related to muscle spasms. Labs are significant for a low calcium and potassium. Potassium replacement will be started. I have discussed with her primary care doctor who agrees to admitting her for replacement. Work up was reviewed and was remarkable for hypokalemia, hypocalcemia. At this time, patient would benefit from further work up and management. Patient is not stable for discharge at this time. Results, vitals, interventions, and plan was discussed with the patient. Patient was given opportunity to ask any questions and are in agreement with plan for admission. Patient was discussed with admitting physician and bridge admission orders were placed. Further care will be managed by inpatient team. (JUAN CHICAS MD) Dragon Disclaimer: Dragon Disclaimer: This electronic medical record was generated, in whole or in part, using a voice recognition dictation system. (KARLEY PEDERSEN DO) Departure Departure: Impression: Primary Impression: Hypokalemia Additional Impressions: Hypocalcemia Muscle cramping Disposition: ADMITTED INPATIENT Condition: STABLE Referrals: VICKI CONNOR MD (PCP) Justification of Admission: Justification of Admission: Justification of Admission Dx: Yes (KARLEY PEDERSEN DO) Justification of Admission Dx: Yes (JUAN CHICAS MD) KARLEY PEDERSEN DO Mar 18, 2020 06:00 JUAN CHICAS MD Mar 18, 2020 07:48
--- NOTE | 2020-03-18 06:27 | RAD ---
Pelvis and right hip: Reason for examination: Severe right hip and pelvic pain. No acute bony abnormality seen in the pelvis. No abnormality seen at the sacrum or sacroiliac joints. Proximal femur bilaterally. Be intact. 2 views of the right hip show no evidence of fracture or dislocation. The bone density is normal. No abnormal periosteal reaction is seen. Joint spaces maintained. IMPRESSION: No acute bony abnormality in the pelvis or right hip. Electronically signed by: Andreea Bowling MD (03/18/2020 6:24 AM) DAO
[2020-03-18] MEDS ORDERED: IV NORMAL SALINE 500ML 500 ML IV ONE (06:30)
[2020-03-18 06:47] LABS: BASO # 0.1 x10^3/uL (0.0-0.2); BASO % 1 % (0-3); EOS % 0 % (0-3); HEMATOCRIT 39.6 % (36.0-47.0); HEMOGLOBIN 13.4 g/dL (12.0-15.5); LYMPH # 1.6 x10^3/uL (1.0-4.8); LYMPH % 16 % (24-48); MEAN CORPUSCULAR HEMOGLOBIN 30 pg (25-35); MEAN CORPUSCULAR HGB CONC 34 g/dL (31-37); MEAN CORPUSCULAR VOLUME 88 fL (79-100); MONO # 0.9 x10^3/uL (0.0-1.1); MONO % 9 % (0-9); NEUT # 7.4 x10^3uL (1.8-7.7); NEUT % 74 % (31-73); PLATELET COUNT 203 x10^3/uL (140-400); RED CELL DISTRIBUTION WIDTH 15.6 % (11.5-14.5)
[2020-03-18 06:59] LABS: ALBUMIN/GLOBULIN RATIO 0.8 (1.0-1.7); CALCIUM 6.6 mg/dL (8.5-10.1); CREATININE 0.7 mg/dL (0.6-1.0); GFR 81.6; TOTAL BILIRUBIN 1.5 mg/dL (0.2-1.0); TOTAL PROTEIN 6.6 g/dL (6.4-8.2)
[2020-03-18] MEDS ORDERED: METHOCARBAMOL 500 MG TABLET PO ONE (07:00)
[2020-03-18] MEDS ORDERED: LIDOCAINE (700MG/PATCH) PATCH. TD ONE (07:00)
[2020-03-18] MEDS ORDERED: traMADol 50 MG TABLET PO ONE (07:00)
[2020-03-18] MEDS ORDERED: POTASSIUM CHLORIDE 20 MEQ TABLET.ER. PO ONE (07:15)
[2020-03-18] MEDS ORDERED: MORPHINE SULFATE 4 MG/ML DISP.SYRIN. IV ONE (07:45)
[2020-03-18] MEDS: POTASSIUM CHLORIDE 20MEQ 100 ML IV SCH ×2 (07:45→10:54)
--- NOTE | 2020-03-18 09:35 | NUR ---
PATIENT ARRIVED TO UNIT VIA EMS. PATIENT IS IN PAIN ON ARRIVAL. VITAL SIGNS OBTAINED AND ARE STABLE. TELE MONITOR APPLIED. PATIENT IS GIVEN ADMISSION EDUCATION. PATIENT IS OFFERED FOOD AND DRINK. PATIENT IS RESTING IN ROOM AT THIS TIME. WATER, CALL LIGHT, PHONE AT BED SIDE. WILL CONTINUE TO MONITOR.
[2020-03-18] MEDS ORDERED: BUDE3CAP15 PO (09:47)
[2020-03-18 09:52] VITALS: BP 114/51
[2020-03-18] MEDS: MAGNESIUM OXIDE 400 MG TABLET PO SCH (10:54)
[2020-03-18] MEDS ORDERED: ELECTROLYTE (ICU) PROTOCOL. MC PRN (12:00)
[2020-03-18] MEDS ORDERED: ELECTROLYTE (NON-ICU) PROTOCOL MC PRN (12:00)
[2020-03-18] MEDS ORDERED: ZOLPIDEM 5 MG TABLET. PO PRN (12:00)
[2020-03-18] MEDS ORDERED: DEXTROSE 50% 25 GM / 50ML DISP.SYRIN. IV PRN (12:30)
--- NOTE | 2020-03-18 12:52 | RAD ---
EXAM: CT Abdomen and Pelvis without IV contrast INDICATION: Reason: LLQ pain / Spl. Instructions: / History: TECHNIQUE: Multi-detector row CT images were acquired from the lung bases through the abdomen and pelvis without the use of IV contrast. Sagittal and coronal images were acquired from the transaxial data. All CT scans performed at this facility utilize dose optimization techniques as appropriate to the exam, including the following: Automated exposure control and adjustment of the mA and/or KV according to patient size (this includes techniques or standardized protocols for targeted exams where dose is indication/reason for exam). ORAL CONTRAST: None COMPARISON: 12/12/[address] without IV contrast FINDINGS: The absence of IV contrast limits evaluation of soft tissue pathology. LOWER CHEST: Unremarkable LIVER: Unremarkable BILIARY SYSTEM: Gallbladder is surgically absent. Bile ducts are not dilated. PANCREAS: Unremarkable SPLEEN: Unremarkable ADRENALS: Unremarkable KIDNEYS & URETERS: Unremarkable BLADDER: Moderately distended. Otherwise unremarkable. REPRODUCTIVE ORGANS: Hysterectomy. GASTROINTESTINAL: The stomach, small bowel, and colon are unremarkable. The appendix is normal. MESENTERY/PERITONEUM/RETROPERITONEUM: Unremarkable VASCULAR: Vascular degenerative changes with dense calcifications in the distal abdominal aorta. No aneurysm. LYMPH NODES: No adenopathy OSSEOUS & SOFT TISSUES: Unremarkable IMPRESSION: No specific cause for left lower quadrant abdominal pain is identified status post hysterectomy. Overall unremarkable CT of the abdomen and pelvis without contrast. Electronically signed by: Jorge Jackson MD (03/18/2020 12:49 PM) [id number]
--- NOTE | 2020-03-18 13:34 | HP ---
ADMIT DATE: 03/18/2020 HISTORY OF PRESENT ILLNESS: A 74-year-old female came in through the Emergency Room early this morning, apparently had developed severe right hip, flank pain, 9-03/28. The patient has a history of Crohn's disease. She denies any falling. The workup down there with x-rays were negative, but she did have a potassium of 2 (NC). The patient has been seeing Dr. Casillas for her Crohn's disease, although this seems to be more in the right gluteal and right pelvic area. CT scan will be ordered and make further evaluation as well as adjusting for any type of pain medications that might help relieve this intense severe pain. The patient was admitted with excruciating pain to her right hip area and make further evaluation. She has also been having numerous diarrhea, possibly related to her Crohn's or medications or a combination thereof. PAST MEDICAL HISTORY: Anticoagulant therapy, hypercholesterolemia, respiratory disorders, pneumonia, colitis, diverticulitis, Crohn's disease, cholecystectomy, GERD, hysterectomy, endocrine disorders, psychiatric problems, depression, skin disease. IMMUNIZATIONS: Tetanus, diphtheria vaccine. Tetanus toxoid vaccination. FAMILY HISTORY: Father and mother, heart disease. Father with colon cancer. ALLERGIES: TYLENOL, ADHESIVE TAPE, CLONIDINE, IODINE, LORATADINE, MAGNESIUM SULFATE, OXYCODONE, PENICILLIN, POTASSIUM, PROPOXYPHENE, PSEUDOEPHEDRINE AND SODIUM SULFATE. SOCIAL HISTORY: The patient socially denies smoking, alcohol or drug use. Lives at home with her . MEDICATIONS: Include Plavix, Zoloft ____ mg, Prilosec 20 at bedtime, budesonide 3 mg capsule b.i.d., carvedilol 6.25, Norvasc 5, spironolactone 25, fentanyl p.r.n., Xanax 0.25. Also Lidoderm patch to her right gluteal area. CODE STATUST: Full code. REVIEW OF SYSTEMS: Denies headaches, vision change, blurred vision, double vision. Denies chest pain, shortness of breath, but the pain is primarily in the right gluteal area and also she is markedly distended. Abdomen is protuberant, soft and diffusely tender, in severe pain to the right gluteal area, but nonradiating down to the leg itself. PHYSICAL EXAMINATION: GENERAL: This is a pleasant white female. She is in severe pain. VITAL SIGNS: Blood pressure 148/87, respiratory rate 18, pulse 92, temperature 97.4. Good oxygen saturation. HEENT: The patient's head was atraumatic, normocephalic in this ill-appearing female. The patient's mouth and throat were normal. NECK: Supple, no JVD or thyromegaly. LUNGS: Diminished throughout, but basically clear. CARDIOVASCULAR: Regular sinus rhythm, S1, S2, without murmur, rub, thrill, or extra heart sounds. ABDOMEN: Soft, protuberant as indicated, severe pain to the right gluteal area. EXTREMITIES: No clubbing, cyanosis or edema. NEUROLOGIC: The patient is alert and oriented x 3. LABORATORY DATA: The patient's sodium 140, potassium 2 (NC), glucose 110, calcium only 6.6, bilirubin 1.5, albumin low at 3. White count 10, hemoglobin 13, hematocrit 39. The patient's urine to be collected. IMPRESSION: Severe right gluteal pain, 9-03/28. The patient otherwise will continue to be monitored on that issue as well as pain management, severe hypokalemia, severe diarrhea, multiple stools per day, type 2 diabetes, history of extreme hypertension and the like and will continue to be monitored on such. Otherwise, the patient will continue to receive potassium supplement, pain medications and work up this diarrhea. CT scan abdomen and pelvis pending, UA pending and try to elucidate the source of this individual's severe pain. VICKI CONNOR MD DR: ALEKSANDR/zane JOB#: [id number] / [id number]
[2020-03-18 13:44] LABS: BACTERIA,URINE 0 /HPF (0-FEW); BILIRUBIN,URINE NEG (NEG); CLARITY,URINE CLEAR; COLOR,URINE AMBER; GLUCOSE,URINE NEG (NEG); NITRITE,URINE NEG (NEG); SQUAMOUS EPITHELIAL CELL,UR OCC /LPF
[2020-03-18 15:45] VITALS: BP 114/70
[2020-03-18] MEDS: INSULIN LISPRO 300 UNITS/3 ML VIAL. SQ SCH (17:00)
[2020-03-18] MEDS: CARVEDILOL 3.125 MG TABLET PO SCH (17:09)
[2020-03-18 19:31] VITALS: BP 118/71
[2020-03-18] MEDS: BUDESONIDE 3 MG CAP.ER.24H. PO SCH (20:55)
[2020-03-18] MEDS: ALPRAZolam 0.25 MG TABLET PO PRN (20:55)
[2020-03-18] MEDS: PANTOPRAZOLE 40 MG TABLET. PO SCH (20:55)
[2020-03-18] MEDS ORDERED: PATCH REMOVAL. MC SCH (21:00)
[2020-03-18 22:33] VITALS: BP 161/77
[2020-03-19 05:44] VITALS: BP 124/73
[2020-03-19 06:18] LABS: BASO % 0 % (0-3); EOS % 0 % (0-3); HEMATOCRIT 35.5 % (36.0-47.0); HEMOGLOBIN 11.8 g/dL (12.0-15.5); LYMPH # 0.7 x10^3/uL (1.0-4.8); LYMPH % 9 % (24-48); MEAN CORPUSCULAR HEMOGLOBIN 30 pg (25-35); MEAN CORPUSCULAR HGB CONC 33 g/dL (31-37); MEAN CORPUSCULAR VOLUME 89 fL (79-100); MONO # 0.4 x10^3/uL (0.0-1.1); MONO % 5 % (0-9); NEUT # 6.5 x10^3uL (1.8-7.7); NEUT % 85 % (31-73); PLATELET COUNT 162 x10^3/uL (140-400); RED BLOOD COUNT 3.98 x10^6/uL (3.50-5.40); RED CELL DISTRIBUTION WIDTH 15.8 % (11.5-14.5); WHITE BLOOD COUNT 7.6 x10^3/uL (4.0-11.0)
[2020-03-19 06:29] LABS: CALCIUM 6.3 mg/dL (8.5-10.1); CREATININE 0.5 mg/dL (0.6-1.0); GFR 120.3
[2020-03-19 06:42] LABS: POTASSIUM 2.9 mmol/L (3.5-5.1)
[2020-03-19] MEDS ORDERED: POTASSIUM CHLORIDE 10MEQ 100 ML IV SCH (07:45)
[2020-03-19] MEDS: INSULIN LISPRO 300 UNITS/3 ML VIAL. SQ SCH ×3 (08:00→17:00)
[2020-03-19] MEDS: MAGNESIUM OXIDE 400 MG TABLET PO SCH (08:34)
[2020-03-19] MEDS: amLODIPine BESYLATE 5 MG TABLET PO SCH (08:34)
[2020-03-19] MEDS: SPIRONOLACTONE 25 MG TABLET PO SCH (08:37)
[2020-03-19] MEDS: BUDESONIDE 3 MG CAP.ER.24H. PO SCH ×2 (08:38→20:53)
[2020-03-19] MEDS: CARVEDILOL 3.125 MG TABLET PO SCH ×2 (08:38→17:13)
[2020-03-19] MEDS ORDERED: ELECTROLYTE (NON-ICU) PROTOCOL MC PRN (09:15)
[2020-03-19] MEDS ORDERED: POTASSIUM CHLORIDE 10 MEQ TABLET.ER. PO ONE (11:00)
--- NOTE | 2020-03-19 11:33 | RAD ---
PQRS Compliance Statement: One or more of the following individualized dose reduction techniques were utilized for this examination: 1. Automated exposure control 2. Adjustment of the mA and/or kV according to patient size 3. Use of iterative reconstruction technique CT LUMBAR SPINE WO CONTRAST Clinical Indication: Reason: SEVERE RIGHT SIDE OF BACK PAIN / Spl. Instructions: / History: Comparison: CT abdomen and pelvis without contrast, prior day. TECHNIQUE: Helical CT imaging of the lumbar spine is performed without IV contrast. Findings: No acute fracture. The vertebral body height and alignment are maintained. There is no significant disc space narrowing. There is degenerative endplate spurring. The sacroiliac joints are symmetric, contain a small amount of air. L1/L2: Unremarkable. L2/L3: There is posterior disc bulge and mild facet hypertrophy contributing to mild central canal stenosis. Neural foramina are adequate. L3/L4: Small posterior disc bulge and mild facet hypertrophy. Prominent posterior epidural fat. There is mild central canal stenosis. Neural foraminal narrowing is probably moderate bilaterally. Far lateral bulging of the disc contributes to neural foraminal narrowing. L4/L5: Small broad-based posterior disc bulge and mild facet hypertrophy and ligamentum flavum redundancy. The central canal is adequate. Moderate bilateral neural foraminal narrowing, bilateral disc bulges contribute to neural foraminal narrowing. L5/S1: Unremarkable. Visualized lung bases are clear. Atherosclerotic abdominal aorta. Bilateral perinephric stranding, can be a normal variant in a patient of this age. There is no hydronephrosis. Fatty replacement of the pancreas. Hysterectomy. No pelvic free fluid. Urinary bladder is decompressed. IMPRESSION: 1. No acute compression fracture or subluxation. 2. Moderate bilateral neural foraminal narrowing of L3/L4 and L4/L5. Electronically signed by: Malik Steward MD (03/19/2020 11:30 AM) [id number]
[2020-03-19] MEDS: LIDOCAINE (700MG/PATCH) PATCH. TD SCH (12:41)
[2020-03-19 15:06] VITALS: BP 120/53
--- NOTE | 2020-03-19 15:24 | NUR ---
NSG NOTE; NO DIARRHEA SINCE ADMISSION YESTERDAY. CDIFF ORDER DC'D. PT STATES HER CROHN'S DISEASE IS UNPREDICTABLE WHEN IT COMES TO DIARRHEA VS. CONSTIPATION C/O LEFT UPPER BUTTOCKS PAIN WHICH IS WORSE WITH MOVEMENT ESPECIALLY GETTING OOB. LIDODERM PATCH APPLIED
--- NOTE | 2020-03-19 19:23 | PN ---
DATE: SUBJECTIVE: A 74-year-old female with severe right hip, right flank pain. The patient is still trying to fight to get this pain under control using Lidoderm and injectable. Her potassium went down to 2.9. She is on electrolyte replacement there. Otherwise, the patient still rates the pain 8-9/10. OBJECTIVE: VITAL SIGNS: Blood pressure 120/50, respiratory rate 16, pulse 85, afebrile. GENERAL: The patient is alert and oriented, but in pain. LUNGS: Clear. CARDIOVASCULAR: Stable. BACK: The patient has severe pain of the lower back and of the right gluteal area. The patient does show on a CT scan of the lumbar spine, moderate bilateral neuroforaminal pinching and problem is there. Otherwise, we will try to get her potassium back into range. She is a diabetic and we are also monitoring that and for some reason her calcium is extremely low as well. Actually, her potassium was as low as 2 at one time. The patient also been having some diarrhea and continue to be monitored on that. IMPRESSION: Hypokalemia, severe left gluteal flank pain, moderate spinal stenosis with impingement, hypocalcemia, Crohn's disease, diarrhea. PLAN: As above. Continue monitored carefully and pain management, get the potassium up. VICKI CONNOR MD DR: ALEKSANDR/zane JOB#: [id number] / [id number]
[2020-03-19 19:40] VITALS: BP 105/65
[2020-03-19] MEDS: PANTOPRAZOLE 40 MG TABLET. PO SCH (20:51)
[2020-03-19] MEDS: ALPRAZolam 0.25 MG TABLET PO PRN (20:52)
[2020-03-19] MEDS: PATCH REMOVAL. MC SCH (20:53)
--- NOTE | 2020-03-19 22:18 | NUR ---
Pr reports having 2 semi-formed stools this evening. C. Diff order cancelled.
[2020-03-19 22:48] VITALS: BP 134/73
[2020-03-20 05:49] VITALS: BP 133/69
--- NOTE | 2020-03-20 06:28 | NUR ---
Lidoderm patch removed for HS. Pt reports sleeping well. Awoke this AM able to amb to bathroom with supervision and then reposition self in bed independently afterwards. Pt reports right hip/buttock pain is significantly improved.
[2020-03-20] MEDS: BUDESONIDE 3 MG CAP.ER.24H. PO SCH ×2 (08:29→20:33)
[2020-03-20] MEDS: LIDOCAINE (700MG/PATCH) PATCH. TD SCH (08:29)
[2020-03-20] MEDS: SPIRONOLACTONE 25 MG TABLET PO SCH (08:30)
[2020-03-20] MEDS: amLODIPine BESYLATE 5 MG TABLET PO SCH (08:31)
[2020-03-20] MEDS: CARVEDILOL 3.125 MG TABLET PO SCH ×2 (08:31→17:21)
[2020-03-20] MEDS: INSULIN LISPRO 300 UNITS/3 ML VIAL. SQ SCH ×3 (08:31→16:59)
[2020-03-20] MEDS: MAGNESIUM OXIDE 400 MG TABLET PO SCH (08:31)
[2020-03-20 09:19] LABS: BASO % 0 % (0-3); EOS % 0 % (0-3); HEMATOCRIT 34.4 % (36.0-47.0); HEMOGLOBIN 11.3 g/dL (12.0-15.5); LYMPH # 0.5 x10^3/uL (1.0-4.8); LYMPH % 7 % (24-48); MEAN CORPUSCULAR HEMOGLOBIN 29 pg (25-35); MEAN CORPUSCULAR HGB CONC 33 g/dL (31-37); MEAN CORPUSCULAR VOLUME 89 fL (79-100); MONO # 0.6 x10^3/uL (0.0-1.1); MONO % 7 % (0-9); NEUT # 6.9 x10^3uL (1.8-7.7); NEUT % 86 % (31-73); PLATELET COUNT 187 x10^3/uL (140-400); RED BLOOD COUNT 3.87 x10^6/uL (3.50-5.40)
[2020-03-20 09:30] LABS: CALCIUM 6.8 mg/dL (8.5-10.1); CREATININE 0.5 mg/dL (0.6-1.0); GFR 120.3; POTASSIUM 3.4 mmol/L (3.5-5.1)
[2020-03-20 11:04] VITALS: BP 125/72
[2020-03-20] MEDS ORDERED: POTASSIUM CHLORIDE 20 MEQ TABLET.ER. PO ONE (12:45)
[2020-03-20 16:43] VITALS: BP 147/72
[2020-03-20] MEDS ORDERED: DIPHENOXYLATE/ATROPINE TABLET. PO ONE (18:45)
--- NOTE | 2020-03-20 18:47 | NUR ---
NSG NOTE; 6 SEC V TACH EPISODE NOTED AT [address] CONNOR NOTIFIED WITH NEW ORDERS NOTED- DR VILLAREAL CONSULT CALLED TO ANSWERING SERVICE
--- NOTE | 2020-03-20 18:48 | NUR ---
NSG NOTE; DR VILLAREAL CONSULT CALLED TO ANSWERING SERVICE AT 1830
--- NOTE | 2020-03-20 19:25 | PN ---
DATE: SUBJECTIVE: The patient comes in with uncontrolled diarrhea, also had a beat run of V-tach this afternoon, converted back into sinus rhythm on her own. Magnesium and potassium levels are being rechecked at this moment; however, the patient is stable. She denied any chest pain. Potassium was a little bit low earlier in the day. She is on electrolyte replacement. The patient has been mobile and been moving around her room unabated, but she does have this problem with the diarrhea. She denies chest pain, shortness of breath. OBJECTIVE: GENERAL: This is a pleasant white female, moderate amount of distress. The patient is alert and oriented. VITAL SIGNS: Blood pressure 142/72, respiratory rate 18, pulse 80, afebrile, room air 98%. LUNGS: Diminished, but clear. CARDIOVASCULAR: Regular sinus rhythm at this time. ABDOMEN: Soft, diffuse tenderness. No rebounding or guarding. Positive bowel sounds. EXTREMITIES: No clubbing, cyanosis or edema. NEUROLOGIC: Stable. IMPRESSION: Severe intractable diarrhea, hypokalemia, Crohn's disease, cardiac arrhythmia, V-tach, severe left gluteal flank pain which seems to have let up somewhat, moderate spinal stenosis with impingement, hypocalcemia. PLAN: The patient will be corrected on her hypocalcemia and make further evaluation on her as indicated. VICKI CONNOR MD DR: ALEKSANDR/zane JOB#: [id number] / [id number]
[2020-03-20] MEDS ORDERED: CALCIUM GLUCONATE 1,000 MG in IV NORMAL SALINE 100ML 100 ML IV ONE (19:30)
[2020-03-20 20:08] LABS: CALCIUM 7.2 mg/dL (8.5-10.1); CREATININE 0.5 mg/dL (0.6-1.0); GFR 120.3; POTASSIUM 3.9 mmol/L (3.5-5.1)
[2020-03-20] MEDS: ALPRAZolam 0.25 MG TABLET PO PRN (20:13)
[2020-03-20] MEDS: ENOXAPARIN 40 MG/0.4 ML SYRINGE. SQ SCH (20:14)
[2020-03-20] MEDS: PANTOPRAZOLE 40 MG TABLET. PO SCH (20:15)
[2020-03-20 20:51] VITALS: BP 107/63
[2020-03-20] MEDS: PATCH REMOVAL. MC SCH (21:00)
[2020-03-20] MEDS: CALCIUM CARBONATE 500 MG TABLET PO SCH (21:48)
[2020-03-20] MEDS: CHOLECALCIFEROL (VITAMIN D3) 1,000 UNIT TABLET PO SCH (21:48)
[2020-03-20] MEDS: ACETAMINOPHEN 325 MG TABLET PO PRN (23:01)
[2020-03-20 23:16] VITALS: BP 114/59
--- NOTE | 2020-03-21 01:17 | NUR ---
Pt c/o frequent trips to the toilet; sometimes diarrhea, sometimes flatulence. Pt refused HS dose of Budesonide; states "I only take it once a day at home and when I take it, I immediately have diarrhea right afterwards." Tylenol given this PM for back pain. Heating pad also being used. Calcium gluconate per orders, replaced with Calcium Carbonate and vitamin D d/t lack of IV access and difficulty in gaining new access. Will continue to monitor.
[2020-03-21 02:07] LABS: CALCIUM PTH 6.7 mg/dL (8.7-10.3); CREATININE PTH 0.42 mg/dL (0.57-1.00); PTH INTACT 165 pg/mL (15-65)
[2020-03-21 05:57] VITALS: BP 133/72
[2020-03-21 06:43] LABS: BASO % 0 % (0-3); EOS % 0 % (0-3); HEMATOCRIT 36.7 % (36.0-47.0); LYMPH % 16 % (24-48); MEAN CORPUSCULAR HEMOGLOBIN 29 pg (25-35); MEAN CORPUSCULAR HGB CONC 33 g/dL (31-37); MEAN CORPUSCULAR VOLUME 89 fL (79-100); MONO # 0.5 x10^3/uL (0.0-1.1); MONO % 8 % (0-9); NEUT # 4.8 x10^3uL (1.8-7.7); NEUT % 76 % (31-73); PLATELET COUNT 246 x10^3/uL (140-400); RED BLOOD COUNT 4.11 x10^6/uL (3.50-5.40); WHITE BLOOD COUNT 6.3 x10^3/uL (4.0-11.0)
[2020-03-21 06:55] LABS: CALCIUM 7.1 mg/dL (8.5-10.1); CREATININE 0.6 mg/dL (0.6-1.0); GFR 97.5; POTASSIUM 3.5 mmol/L (3.5-5.1)
[2020-03-21] MEDS: INSULIN LISPRO 300 UNITS/3 ML VIAL. SQ SCH ×3 (07:35→16:36)
[2020-03-21] MEDS: SPIRONOLACTONE 25 MG TABLET PO SCH (08:04)
[2020-03-21] MEDS: ALPRAZolam 0.25 MG TABLET PO PRN ×2 (08:04→19:54)
[2020-03-21] MEDS: CHOLECALCIFEROL (VITAMIN D3) 1,000 UNIT TABLET PO SCH (08:04)
[2020-03-21] MEDS: CALCIUM CARBONATE 500 MG TABLET PO SCH (08:04)
[2020-03-21] MEDS: CARVEDILOL 3.125 MG TABLET PO SCH ×2 (08:05→17:16)
[2020-03-21] MEDS: POTASSIUM CHLORIDE 20 MEQ TABLET.ER. PO SCH ×2 (08:05→10:00)
[2020-03-21] MEDS: ASPIRIN ENTERIC COATED 81 MG TABLET.DR. PO SCH (08:05)
[2020-03-21] MEDS: amLODIPine BESYLATE 5 MG TABLET PO SCH (08:06)
[2020-03-21] MEDS: MAGNESIUM OXIDE 400 MG TABLET PO SCH (08:06)
[2020-03-21] MEDS: LIDOCAINE (700MG/PATCH) PATCH. TD SCH (08:07)
[2020-03-21] MEDS: BUDESONIDE 3 MG CAP.ER.24H. PO SCH (08:09)
[2020-03-21] MEDS ORDERED: traMADol 50 MG TABLET PO PRN (10:00)
[2020-03-21] MEDS ORDERED: FUROSEMIDE 40 MG TABLET PO ONE (10:00)
[2020-03-21 10:53] VITALS: BP 114/68
[2020-03-21] MEDS ORDERED: POTASSIUM CHLORIDE 20 MEQ TABLET.ER. PO ONE (11:00)
[2020-03-21] MEDS: DIPHENOXYLATE/ATROPINE TABLET. PO PRN ×2 (11:40→16:05)
[2020-03-21] MEDS: MESALAMINE ER 250 MG CAPSULE.ER PO SCH ×4 (11:41→21:06)
[2020-03-21 15:30] VITALS: BP 128/49
[2020-03-21] MEDS: ACETAMINOPHEN 325 MG TABLET PO PRN (19:54)
[2020-03-21] MEDS: LOPERAMIDE 2 MG CAPSULE PO PRN ×2 (19:54→22:57)
[2020-03-21 20:00] VITALS: BP 114/63
[2020-03-21] MEDS: PATCH REMOVAL. MC SCH (21:00)
[2020-03-21] MEDS: PANTOPRAZOLE 40 MG TABLET. PO SCH (21:06)
[2020-03-21] MEDS: ENOXAPARIN 40 MG/0.4 ML SYRINGE. SQ SCH (21:06)
--- NOTE | 2020-03-21 21:58 | PN ---
DATE: 03/21/2020 SUBJECTIVE: This is a 74-year-old female who had episodes of V-tach last night __. The patient's calcium has been low, but difficult to start an IV on her, but we have given her additional calcium, magnesium, and potassium to control this arrhythmia. Other than that the patient still continues to have extreme diarrhea despite the use of drugs like Lomotil and adjusting some of her other meds that might be causing the diarrhea. OBJECTIVE: VITAL SIGNS: Blood pressure 115/60, respiratory rate 20, pulse 76, afebrile. GENERAL: The patient is alert and oriented. LUNGS: Diminished, but clear presently. CARDIOVASCULAR: Regular sinus rhythm. ABDOMEN: Soft, nontender. EXTREMITIES: No clubbing, cyanosis or edema. Still tenderness in the right gluteal area. DIAGNOSTIC STUDIES: CT scans have been unremarkable. IMPRESSION: Hypokalemia, ventricular tachycardia, severe left gluteal flank pain, moderate spinal stenosis, hypocalcemia, Crohn's disease and severe diarrhea. VICKI CONNOR MD DR: ALEKSANDR/zane JOB#: [id number] / [id number]
[2020-03-21 22:41] VITALS: BP 136/73
[2020-03-22] MEDS: LOPERAMIDE 2 MG CAPSULE PO PRN ×3 (00:09→21:28)
[2020-03-22 05:37] VITALS: BP 145/76
--- NOTE | 2020-03-22 06:06 | NUR ---
Pt was up to toilet multiple times this night. She states, " There is very little that comes out but I still feel like I have to go. It's mostly gas." She requested immodium multiple times through the night. She has rested for a few hours this surgical oncologist. Will continue to monitor.
[2020-03-22] MEDS: INSULIN LISPRO 300 UNITS/3 ML VIAL. SQ SCH ×3 (08:00→17:00)
[2020-03-22 08:21] LABS: BASO % 0 % (0-3); EOS % 0 % (0-3); HEMATOCRIT 36.3 % (36.0-47.0); HEMOGLOBIN 12.1 g/dL (12.0-15.5); LYMPH # 1.6 x10^3/uL (1.0-4.8); LYMPH % 30 % (24-48); MEAN CORPUSCULAR HEMOGLOBIN 30 pg (25-35); MEAN CORPUSCULAR HGB CONC 33 g/dL (31-37); MEAN CORPUSCULAR VOLUME 90 fL (79-100); MONO # 0.5 x10^3/uL (0.0-1.1); MONO % 10 % (0-9); NEUT # 3.2 x10^3uL (1.8-7.7); NEUT % 59 % (31-73); PLATELET COUNT 244 x10^3/uL (140-400); RED BLOOD COUNT 4.05 x10^6/uL (3.50-5.40); RED CELL DISTRIBUTION WIDTH 16.1 % (11.5-14.5); WHITE BLOOD COUNT 5.3 x10^3/uL (4.0-11.0)
[2020-03-22 08:33] LABS: CALCIUM 7.3 mg/dL (8.5-10.1); CREATININE 0.6 mg/dL (0.6-1.0); GFR 97.5; MAGNESIUM 1.6 mg/dL (1.8-2.4); POTASSIUM 3.8 mmol/L (3.5-5.1)
[2020-03-22] MEDS: MAGNESIUM OXIDE 400 MG TABLET PO SCH (08:40)
[2020-03-22] MEDS: SPIRONOLACTONE 25 MG TABLET PO SCH (08:40)
[2020-03-22] MEDS: CHOLECALCIFEROL (VITAMIN D3) 1,000 UNIT TABLET PO SCH (08:40)
[2020-03-22] MEDS: CALCIUM CARBONATE 500 MG TABLET PO SCH (08:41)
[2020-03-22] MEDS: DIPHENOXYLATE/ATROPINE TABLET. PO PRN (08:41)
[2020-03-22] MEDS: CARVEDILOL 3.125 MG TABLET PO SCH ×2 (08:41→17:29)
[2020-03-22] MEDS: FUROSEMIDE 40 MG TABLET PO SCH (08:41)
[2020-03-22] MEDS: POTASSIUM CHLORIDE 20 MEQ TABLET.ER. PO SCH ×2 (08:42→08:47)
[2020-03-22] MEDS: ASPIRIN ENTERIC COATED 81 MG TABLET.DR. PO SCH (08:42)
[2020-03-22] MEDS: amLODIPine BESYLATE 5 MG TABLET PO SCH (08:43)
[2020-03-22] MEDS: LIDOCAINE (700MG/PATCH) PATCH. TD SCH (08:44)
[2020-03-22] MEDS: MESALAMINE ER 250 MG CAPSULE.ER PO SCH ×4 (08:46→21:28)
[2020-03-22] MEDS ORDERED: POTASSIUM CHLORIDE 20 MEQ TABLET.ER. PO ONE (10:45)
[2020-03-22 11:00] VITALS: BP 135/68
[2020-03-22 16:22] VITALS: BP 124/76
[2020-03-22 19:51] VITALS: BP 164/75
[2020-03-22] MEDS: PATCH REMOVAL. MC SCH (21:00)
[2020-03-22] MEDS: ENOXAPARIN 40 MG/0.4 ML SYRINGE. SQ SCH (21:27)
[2020-03-22] MEDS: PANTOPRAZOLE 40 MG TABLET. PO SCH (21:29)
[2020-03-22] MEDS: ALPRAZolam 0.25 MG TABLET PO PRN (21:38)
[2020-03-22 22:07] VITALS: BP 135/87
--- NOTE | 2020-03-23 00:58 | PN ---
DATE: SUBJECTIVE: The patient in with severe diarrhea, had episodes of V-tach, with low magnesium, low potassium and calcium. The patient has improved on those parameters and continues to make good progress except for her diarrhea, which is still a significant problem. We have increased her Lomotil to 2 tablets 4 times a day to help her with controlling this, she has got an appointment ____ with Dr. Casillas. OBJECTIVE: VITAL SIGNS: The patient's blood pressure is 124/76, respiratory rate 20, pulse 80, afebrile. GENERAL: The patient is alert, oriented. LUNGS: Diminished, but clear. CARDIOVASCULAR: Regular sinus rhythm presently. ABDOMEN: Soft, diffuse tenderness. PLAN: As above. Continue with adjusting her electrolytes and increase magnesium and calcium. VICKI CONNOR MD DR: ALEKSANDR/zane JOB#: [id number] / [id number]
[2020-03-23 04:41] VITALS: BP 132/74
[2020-03-23 06:33] LABS: BASO % 0 % (0-3); EOS % 1 % (0-3); HEMATOCRIT 35.9 % (36.0-47.0); HEMOGLOBIN 11.8 g/dL (12.0-15.5); LYMPH # 2.2 x10^3/uL (1.0-4.8); LYMPH % 37 % (24-48); MEAN CORPUSCULAR HEMOGLOBIN 29 pg (25-35); MEAN CORPUSCULAR HGB CONC 33 g/dL (31-37); MEAN CORPUSCULAR VOLUME 90 fL (79-100); MONO # 0.5 x10^3/uL (0.0-1.1); MONO % 8 % (0-9); NEUT # 3.1 x10^3uL (1.8-7.7); NEUT % 53 % (31-73); PLATELET COUNT 280 x10^3/uL (140-400); RED BLOOD COUNT 4.01 x10^6/uL (3.50-5.40); WHITE BLOOD COUNT 5.8 x10^3/uL (4.0-11.0)
[2020-03-23 06:51] LABS: CALCIUM 7.7 mg/dL (8.5-10.1); CREATININE 0.6 mg/dL (0.6-1.0); GFR 97.5; POTASSIUM 4.1 mmol/L (3.5-5.1)
[2020-03-23] MEDS: POTASSIUM CHLORIDE 20 MEQ TABLET.ER. PO SCH ×2 (08:00→08:57)
[2020-03-23] MEDS: INSULIN LISPRO 300 UNITS/3 ML VIAL. SQ SCH ×2 (08:00→12:00)
[2020-03-23] MEDS: LIDOCAINE (700MG/PATCH) PATCH. TD SCH (08:56)
[2020-03-23] MEDS: CHOLECALCIFEROL (VITAMIN D3) 1,000 UNIT TABLET PO SCH (08:57)
[2020-03-23] MEDS: ASPIRIN ENTERIC COATED 81 MG TABLET.DR. PO SCH (08:57)
[2020-03-23] MEDS: CALCIUM CARBONATE 500 MG TABLET PO SCH (08:57)
[2020-03-23 08:58] VITALS: BP 132/74
[2020-03-23] MEDS: MESALAMINE ER 250 MG CAPSULE.ER PO SCH ×2 (08:58→12:54)
[2020-03-23] MEDS: FUROSEMIDE 40 MG TABLET PO SCH (08:58)
[2020-03-23] MEDS: amLODIPine BESYLATE 5 MG TABLET PO SCH (08:58)
[2020-03-23] MEDS: MAGNESIUM OXIDE 400 MG TABLET PO SCH (08:58)
[2020-03-23] MEDS: CARVEDILOL 3.125 MG TABLET PO SCH (08:58)
[2020-03-23] MEDS: SPIRONOLACTONE 25 MG TABLET PO SCH (08:59)
[2020-03-23] MEDS ORDERED: ACET325T9 PO (10:59)
[2020-03-23] MEDS ORDERED: TRAM50TA PO (10:59)
[2020-03-23] MEDS ORDERED: ASPI-889 PO (10:59)
[2020-03-23] MEDS ORDERED: LOPE2CAP PO (10:59)
[2020-03-23] MEDS ORDERED: LIDO700A21 TD (10:59)
[2020-03-23] MEDS ORDERED: POTA20TA4 PO (10:59)
[2020-03-23] MEDS ORDERED: MESA250C PO (10:59)
[2020-03-23] MEDS ORDERED: CALC500T14 PO (10:59)
[2020-03-23] MEDS ORDERED: MAGN400T44 PO (10:59)
[2020-03-23] MEDS ORDERED: CHOL10003 PO (10:59)
[2020-03-23] MEDS ORDERED: FURO40TA4 PO (10:59)
--- NOTE | 2020-03-23 11:31 | PDOC2 ---
CONSULT DOS: DATE: 03/23/20 TIME: 11:31 Reason for Consult: Nonsustained ventricular tachycardia Referring Physician: Dr. Payne Chief Complaint Hip pain Source: Chart review, Patient Problem List Problems Medical Problems: (1) Hypocalcemia Status: Acute (2) Hypokalemia Status: Acute (3) Muscle cramping Status: Acute History of Present Illness 74-year-old female with history of Crohn's disease presented with right hip and flank pain that she described as excruciating, 9/10 severity. She also stated that she had multiple bouts of diarrhea but denied any chest pain, orthopnea/PND, palpitations or syncope. She was diagnosed with severe hypokalemia and admitted for supplementation. Past Medical History Probable chronic diastolic heart failure since patient is on diuretics Patient was apparently told she had ' irregular heartbeat' several years ago (probably PVCs based on her description) Hyperlipidemia Crohn's disease GERD Anxiety/depression Diabetes mellitus type 2 Hypertension Pneumonia Osteoporosis Past Surgical History Appendectomy Cholecystectomy Hysterectomy Rotator cuff repair Family History Not contributory Social History Patient denied any smoking, alcohol or drug use Current Medications Current Medications Sodium Chloride 500 ml @ 500 mls/hr 1X ONCE IV Last administered on 03/18/20at 06:32; Start 03/18/20 at 06:30; Stop 03/18/20 at 07:29; Status DC Methocarbamol (Robaxin) 1,000 mg 1X ONCE PO Last administered on 03/18/20at 08:03; Start 03/18/20 at 07:00; Stop 03/18/20 at 07:01; Status DC Lidocaine (Lidoderm) 1 patch 1X ONCE TD Last administered on 03/18/20at 06:33; Start 03/18/20 at 07:00; Stop 03/18/20 at 07:01; Status DC Miscellaneous (Lidoderm Patch Removal) 1 ea QHS MC Last administered on 03/18/20at 20:54; Start 03/18/20 at 21:00; Stop 03/19/20 at 11:25; Status DC Tramadol HCl (Ultram) 50 mg 1X ONCE PO Last administered on 03/18/20at 06:33; Start 03/18/20 at 07:00; Stop 03/18/20 at 07:01; Status DC Potassium Chloride (Klor-Con) 40 meq 1X ONCE PO Last administered on 9/30/20at 07:45; Start 03/18/20 at 07:15; Stop 03/18/20 at 07:21; Status DC Potassium Chloride 100 ml @ 50 mls/hr Q1H IV Last administered on 03/18/20 10:54; Start 03/18/20 at 07:15; Stop 03/18/20 at 09:14; Status DC Morphine Sulfate (Morphine 4mg Syringe) 4 mg 1X ONCE IV Last administered on 03/18/20 08:07; Start 03/18/20 at 07:45; Stop 03/18/20 at 07:46; Status DC Magnesium Oxide (Magnesium Oxide) 200 mg DAILY PO Last administered on 03/23/20 08:58; Start 03/18/20 at 09:00 Fentanyl Citrate (Fentanyl 2ml Vial) 50 mcg PRN Q2HRS PRN IV SEVERE PAIN 7-10 Last administered on 03/18/20 20:58; Start 03/18/20 at 12:15 Alprazolam (Xanax) 0.25 mg PRN TID PRN PO ANXIETY Last administered on 03/22/20 21:38; Start 03/18/20 at 12:00 Amlodipine Besylate (Norvasc) 5 mg DAILY PO Last administered on 03/23/20 08:58; Start 03/19/20 at 09:00 Budesonide (Entocort) 9 mg BID PO Last administered on 03/21/20 08:09; Start 03/18/20 at 21:00; Stop 03/21/20 at 09:54; Status DC Carvedilol (Coreg) 3.125 mg BIDWMEALS PO Last administered on 03/23/20 08:58; Start 03/18/20 at 17:00 Spironolactone (Aldactone) 12.5 mg DAILY PO Last administered on 03/23/20 08:59; Start 03/19/20 at 09:00 Zolpidem Tartrate (Ambien) 5 mg PRN QHS PRN PO INSOMNIA, MAY REPEAT IN 1HR; Start 03/18/20 at 12:00 Pantoprazole Sodium (Protonix) 40 mg QHS PO Last administered on 03/22/20 21:29; Start 03/18/20 at 21:00 Info (Icu Electrolyte Protocol) 1 ea CONT PRN PRN MC PER PROTOCOL; Start 03/18/20 at 12:00; Stop 03/18/20 at 12:00; Status DC Info (Non-Icu Electrolyte Protocol) 1 ea CONT PRN PRN MC PER PROTOCOL; Start 03/18/20 at 12:00; Stop 03/19/20 at 11:26; Status DC Insulin Human Lispro (HumaLOG) 0-9 UNITS TIDWMEALS SQ Last administered on 03/19/20at 12:44; Start 03/18/20 at 17:00 Dextrose (Dextrose 50%-Water Syringe) 12.5 gm PRN Q15MIN PRN IV SEE COMMENTS; Start 03/18/20 at 12:30 Potassium Chloride 100 ml @ 100 mls/hr Q1H IV Last administered on 03/19/20at 08:39; Start 03/19/20 at 07:45; Stop 03/19/20 at 10:56; Status DC Info (Non-Icu Electrolyte Protocol) 1 ea CONT PRN PRN MC PER PROTOCOL; Start 03/19/20 at 09:15 Potassium Chloride (Klor-Con) 30 meq 1X ONCE PO Last administered on 03/19/20at 11:13; Start 03/19/20 at 11:00; Stop 03/19/20 at 11:01; Status DC Lidocaine (Lidoderm) 1 patch DAILY TD Last administered on 03/23/20at 08:56; Start 03/19/20 at 11:30 Miscellaneous (Lidoderm Patch Removal) 1 ea QHS MC Last administered on 03/22/20at 21:00; Start 03/19/20 at 21:00 Potassium Chloride (Klor-Con) 20 meq DAILYWBKFT PO Last administered on 03/22/20at 08:42; Start 03/21/20 at 08:00 Potassium Chloride (Klor-Con) 40 meq 1X ONCE PO Last administered on 03/20/20at 13:48; Start 03/20/20 at 12:45; Stop 03/20/20 at 12:46; Status DC Enoxaparin Sodium (Lovenox 40mg Syringe) 40 mg Q24H SQ Last administered on 03/22/20at 21:27; Start 03/20/20 at 21:00 Aspirin (Aspirin Enteric Coated) 81 mg DAILYWBKFT PO Last administered on 03/23/20at 08:57; Start 03/21/20 at 08:00 Diphenoxylate HCl/ Atropine (Lomotil) 1 tab PRN QID PRN PO DIARRHEA Last administered on 03/22/20 08:41; Start 03/20/20 at 18:45 Diphenoxylate HCl/ Atropine (Lomotil) 2 tab 1X ONCE PO Last administered on 03/20/20at 20:14; Start 03/20/20 at 18:45; Stop 03/20/20 at 18:58; Status DC Calcium Gluconate 1000 mg/Sodium Chloride 110 ml @ 220 mls/hr 1X ONCE IV ; Start 03/20/20 at 19:30; Stop 03/20/20 at 20:50; Status DC Calcium Carbonate/ Glycine (Oscal) 1,000 mg DAILY PO Last administered on 03/23/20 08:57; Start 03/20/20 at 21:00 Vitamin D (Vitamin D3) 1,000 unit DAILY PO Last administered on 03/23/20 08:57; Start 03/20/20 at 21:00 Acetaminophen (Tylenol) 325 mg PRN Q6HRS PRN PO MILD PAIN / TEMP > 100.3'F Last administered on 03/21/20 19:54; Start 03/20/20 at 23:00 Tramadol HCl (Ultram) 50 mg PRN Q6HRS PRN PO PAIN Last administered on 03/22/20 08:42; Start 03/21/20 at 10:00 Furosemide (Lasix) 40 mg 1X ONCE PO Last administered on 03/21/20 11:41; Start 03/21/20 at 10:00; Stop 03/21/20 at 10:01; Status DC Furosemide (Lasix) 40 mg DAILY PO Last administered on 03/23/20 08:58; Start 03/22/20 at 09:00 Potassium Chloride (Klor-Con) 40 meq DAILY PO Last administered on 03/23/20 08:57; Start 03/21/20 at 10:00 Mesalamine (Pentasa) 250 mg [id number] PO Last administered on 03/23/20 08:58; Start 03/21/20 at 10:00 Potassium Chloride (Klor-Con) 80 meq 1X ONCE PO Last administered on 03/21/20 11:40; Start 03/21/20 at 11:00; Stop 03/21/20 at 11:51; Status DC Loperamide HCl (Imodium) 2 mg PRN Q15MIN PRN PO DIARRHEA Last administered on 03/22/20at 21:28; Start 03/21/20 at 18:45 Potassium Chloride (Klor-Con) 40 meq 1X ONCE PO ; Start 03/22/20 at 10:45; Stop 03/22/20 at 10:57; Status DC Active Scripts Active Tramadol Hcl (Tramadol HCl) 50 Mg Tablet 50 Mg PO PRN Q6HRS PRN Ambien (Zolpidem Tartrate) 5 Mg Tablet 5 Mg PO PRN QHS PRN Reported Entocort Ec (Budesonide) 3 Mg Capdr...er 3 Cap PO DAILY Clopidogrel (Clopidogrel Bisulfate) 75 Mg Tablet 1 Tab PO QODAY LAST DOSE GIVEN: DATE: TODAY TIME: AM NEXT DOSE DUE: DATE: MONDAY TIME: AM Amlodipine Besylate 5 Mg Tablet 1 Tab PO DAILY NOT GIVEN TODAY NEXT DOSE DUE: DATE: TOMORROW TIME: AM Coreg (Carvedilol) 6.25 Mg Tablet 3.125 Mg PO BIDWMEALS NOT GIVEN THIS AM NEXT DOSE DUE: DATE: TODAY TIME: AT DINNER Alprazolam 0.25 Mg Tablet 1 Tab PO TID PRN LAST DOSE GIVEN: DATE: TODAY TIME: 9 AM NEXT DOSE DUE: DATE: TODAY TIME: AFTERNOON IF NEEDED Prilosec (Omeprazole) 20 Mg Capsule.dr 20 Mg PO QHS LAST DOSE GIVEN: DATE: TODAY TIME: AM NEXT DOSE DUE: DATE: TODAY TIME: PM Spironolactone 25 Mg Tablet 0.5 Tab PO DAILY LAST DOSE GIVEN: DATE: TODAY TIME: AM NEXT DOSE DUE: DATE: TOMORR TIME: AM Allergies: Coded Allergies: iodine (Verified Allergy, Severe, 12/07/19) adhesive tape (Verified Allergy, Intermediate, 12/07/19) clonidine (Verified Allergy, Intermediate, 12/07/19) loratadine (Verified Allergy, Intermediate, 12/07/19) magnesium sulfate (Verified Allergy, Intermediate, 12/07/19) oxycodone (Verified Allergy, Intermediate, N/V, 12/12/19) penicillin (Verified Allergy, Intermediate, 12/07/19) propoxyphene (Verified Allergy, Intermediate, 12/07/19) pseudoephedrine (Verified Allergy, Intermediate, 12/07/19) sodium sulfate (Verified Allergy, Intermediate, 12/07/19) PSYCHOLOGICAL ROS: No: Hallucinations Eyes: No: Loss of vision HEENT: No: Epistaxis Respiratory: No: Hemoptysis, Shortness of breath Cardiovascular: No: Chest Pain, Palpitations Genitourinary: No: Henaturia Musculoskeletal: YES: Joint Pain Neurological: No: Seizures Skin: No: Rash General: Alert, Oriented X3 HEENT: Atraumatic, PERRLA Lungs: Clear to auscultation Heart: Regular rate Abdomen: Soft Extremities: Other (1+ pitting edema) VITALS Vital Signs Date Time Temp Pulse Resp B/P (MAP) Pulse Ox O2 Delivery O2 Flow Rate FiO2 03/23/20 08:58 74 132/74 03/23/20 08:00 Room Air 03/23/20 04:41 98.0 20 97 03/19/20 15:06 0.0 Labs Laboratory Tests Test 03/21/20 11:52 03/21/20 16:35 03/21/20 20:25 03/22/20 07:30 Glucose (Fingerstick) 120 mg/dL (70-99) 139 mg/dL (70-99) 185 mg/dL (70-99) White Blood Count 5.3 x10^3/uL (4.0-11.0) Red Blood Count 4.05 x10^6/uL (3.50-5.40) Hemoglobin 12.1 g/dL (12.0-15.5) Hematocrit 36.3 % (36.0-47.0) Mean Corpuscular Volume 90 fL (79-100) Mean Corpuscular Hemoglobin 30 pg (25-35) Mean Corpuscular Hemoglobin Concent 33 g/dL (31-37) Red Cell Distribution Width 16.1 % (11.5-14.5) Platelet Count 244 x10^3/uL (140-400) Neutrophils (%) (Auto) 59 % (31-73) Lymphocytes (%) (Auto) 30 % (24-48) Monocytes (%) (Auto) 10 % (0-9) Eosinophils (%) (Auto) 0 % (0-3) Basophils (%) (Auto) 0 % (0-3) Neutrophils # (Auto) 3.2 x10^3uL (1.8-7.7) Lymphocytes # (Auto) 1.6 x10^3/uL (1.0-4.8) Monocytes # (Auto) 0.5 x10^3/uL (0.0-1.1) Eosinophils # (Auto) 0.0 x10^3/uL (0.0-0.7) Basophils # (Auto) 0.0 x10^3/uL (0.0-0.2) Sodium Level 141 mmol/L (136-145) Potassium Level 3.8 mmol/L (3.5-5.1) Chloride Level 107 mmol/L (98-107) Carbon Dioxide Level 22 mmol/L (21-32) Anion Gap 12 (6-14) Blood Urea Nitrogen 10 mg/dL (7-20) Creatinine 0.6 mg/dL (0.6-1.0) Estimated GFR (Cockcroft-Gault) 97.5 Glucose Level 93 mg/dL (70-99) Calcium Level 7.3 mg/dL (8.5-10.1) Magnesium Level 1.6 mg/dL (1.8-2.4) Test 03/22/20 11:20 03/22/20 16:06 03/22/20 18:15 03/22/20 20:40 Glucose (Fingerstick) 126 mg/dL (70-99) 150 mg/dL (70-99) 136 mg/dL (70-99) Magnesium Level 1.5 mg/dL (1.8-2.4) Test 03/23/20 06:09 03/23/20 07:24 03/23/20 11:27 White Blood Count 5.8 x10^3/uL (4.0-11.0) Red Blood Count 4.01 x10^6/uL (3.50-5.40) Hemoglobin 11.8 g/dL (12.0-15.5) Hematocrit 35.9 % (36.0-47.0) Mean Corpuscular Volume 90 fL (79-100) Mean Corpuscular Hemoglobin 29 pg (25-35) Mean Corpuscular Hemoglobin Concent 33 g/dL (31-37) Red Cell Distribution Width 16.0 % (11.5-14.5) Platelet Count 280 x10^3/uL (140-400) Neutrophils (%) (Auto) 53 % (31-73) Lymphocytes (%) (Auto) 37 % (24-48) Monocytes (%) (Auto) 8 % (0-9) Eosinophils (%) (Auto) 1 % (0-3) Basophils (%) (Auto) 0 % (0-3) Neutrophils # (Auto) 3.1 x10^3uL (1.8-7.7) Lymphocytes # (Auto) 2.2 x10^3/uL (1.0-4.8) Monocytes # (Auto) 0.5 x10^3/uL (0.0-1.1) Eosinophils # (Auto) 0.0 x10^3/uL (0.0-0.7) Basophils # (Auto) 0.0 x10^3/uL (0.0-0.2) Sodium Level 139 mmol/L (136-145) Potassium Level 4.1 mmol/L (3.5-5.1) Chloride Level 107 mmol/L (98-107) Carbon Dioxide Level 25 mmol/L (21-32) Anion Gap 7 (6-14) Blood Urea Nitrogen 10 mg/dL (7-20) Creatinine 0.6 mg/dL (0.6-1.0) Estimated GFR (Cockcroft-Gault) 97.5 Glucose Level 80 mg/dL (70-99) Calcium Level 7.7 mg/dL (8.5-10.1) Glucose (Fingerstick) 81 mg/dL (70-99) 126 mg/dL (70-99) Assessment/Plan 1. Nonsustained ventricular tachycardia noted on telemetry, asymptomatic. Magnesium level low, being replaced orally since patient does not have any IV access. Patient was very hypokalemic upon admission that has been replaced. Plan for 2D echo, ischemic evaluation and event monitor as an outpatient. Continue beta-blockers. 2. Hypertension: Controlled 3. Right hip/flank pain. Work-up so far did not reveal any acute process. Continue management per primary team. 4. Crohn's disease with diarrhea: Treat per PCP. 5. Mild acute on chronic diastolic heart failure based on edema. Patient denied any shortness of breath. She was advised to take her Lasix on a daily basis till her edema resolves. Thank you for your consultation SNEHAL ZAMORA MD Mar 23, 2020 11:31
--- NOTE | 2020-03-23 12:01 | NUR ---
Dr Contreras office will call pt and set up echocardiogram and event monitor.
--- NOTE | 2020-03-23 13:10 | NUR ---
discharge instructions reviewed with pt. all belongings sent with pt. rxs sent electronically to pharmacy. no questions. discharge instructions and education materials sent with pt.
--- NOTE | 2020-03-25 21:01 | DS ---
DATE OF DISCHARGE: 03/23/2020 HOSPITAL COURSE: This is a 74-year-old female who came in through the Emergency Room with increased weakness. The patient had developed severe right flank, right hip pain radiating down her leg. Workup on that was basically unremarkable, but then the patient began to have amplification of her diarrhea, which she had seen Dr. Caisllas before and had another secondary consult for this diarrhea where she had numerous bowel movements per day including upwards of 6 at one time during one 24-hour period. Her blood pressure remained stable 132/70, pulse 74, respiratory rate 20, afebrile; however, the patient otherwise made good progress during the rest of her hospitalization and she was discharged home. Her electrolytes were monitored carefully. Hemoglobin 11.8, 35. Sodium 139, 4.1. BUN and creatinine were stable. The patient will be continued to be monitored carefully on her electrolytes ____ diarrhea and make further assessment as an outpatient. IMPRESSION: Severe intractable diarrhea, ____, Crohn's disease, hypocalcemia, cardiac arrhythmia, ventricular tachycardia, right gluteal flank pain, moderate spinal stenosis with impingement, severe diarrhea. PLAN: The patient will be discharged home. Follow up as an outpatient with her child care director as well as her air sealing technician for her multiplicity of her medical problems. VICKI CONNOR MD DR: ALEKSANDR/zane JOB#: [id number] / [id number]
== END 2020-03-23 12:52 | disposition home or self-care (01) | DRG 391 ==
LOC: ER 05:30 → 1 SOUTH 07:36
PROVIDERS: ADMIT Family Medicine; ATTEND Family Medicine
DX: K52.9 Noninfective gastroenteritis and colitis, unspecified (principal); I50.33 Acute on chronic diastolic (congestive) heart failure; K50.90 Crohn's disease, unspecified, without complications; I47.2 Ventricular tachycardia; E87.6 Hypokalemia; E11.9 Type 2 diabetes mellitus without complications; E78.00 Pure hypercholesterolemia, unspecified; E83.51 Hypocalcemia; M81.0 Age-related osteoporosis without current pathological fracture; Z80.0 Family history of malignant neoplasm of digestive organs; I11.0 Hypertensive heart disease with heart failure; E78.5 Hyperlipidemia, unspecified; Z82.49 Family history of ischemic heart disease and other diseases of the circulatory system; Z90.49 Acquired absence of other specified parts of digestive tract; Z90.710 Acquired absence of both cervix and uterus; F32.9 Major depressive disorder, single episode, unspecified; F41.9 Anxiety disorder, unspecified; I49.3 Ventricular premature depolarization; K21.9 Gastro-esophageal reflux disease without esophagitis; I49.9 Cardiac arrhythmia, unspecified; M48.00 Spinal stenosis, site unspecified; Z88.0 Allergy status to penicillin; Z88.8 Allergy status to other drugs, medicaments and biological substances; Z91.048 Other nonmedicinal substance allergy status
CPT/HCPCS: 36415; 72131; 73502; 74176; 80048; 80053; 81001; 82550; 82947; 83735; 83970; 84484; 85025; 87086; 96360; J1650; J1815; J2270; J3010; J3480; J7040; 97116; 99285-25

== ENCOUNTER 2020-03-26 12:26 | Emergency (ER) | payer MEDICARE, OTHER ==
[~2020-03-26] VITALS: Ht 147.3 cm; Wt 52.6 kg
[~2020-03-26 12:26] MED LIST changes: +ACET325T9 PO; +ASPI-889 PO; +BUDE3CAP15 PO; +CALC500T14 PO; +CHOL10003 PO; +FURO40TA4 PO; +LIDO700A21 TD; +LOPE2CAP PO; +MAGN400T44 PO; +MESA250C PO; +POTA20TA4 PO; +TRAM50TA PO
--- NOTE | 2020-03-26 12:45 | PHYS DOC ---
Past History Past Medical History: Anxiety, Diabetes, GERD, High Cholesterol, Hypertension, Pneumonia, Other Additional Past Medical Histor: CROHNS, OSTEOPOROSIS, RSV , "borderline diab" Past Surgical History: Appendectomy, Cholecystectomy, Hysterectomy, Other Additional Past Surgical Histo: right rotator cuff, adhesions Smoking: Non-smoker Alcohol Use: None Drug Use: None General Adult EDM: Chief Complaint: MECHANICAL FALL HPI: HPI: History is obtained from the patient. Patient is a 74-year-old female with a history of hypertension who presents with chief complaint of fall. Patient states 7 hours prior to arrival she experienced mechanical fall at home. States she was walking, tripped over a desk, and struck her head. She denies loss of consciousness. She denies any palpitations, chest pain, shortness of breath prior to falling. She was able to get herself up. She states she called her primary care physician who encouraged her to report to the emergency department after her barium enema study which was performed at outside hospital. She states she has been able ambulate since the fall. She knows she was hospitalized in our facility approximately 1 week ago for low potassium and calcium. She states her family doctor also wanted this checked. She does note a bruise to her left thigh. Denies any new back pain. Does take Plavix daily. No other complaints. Review of Systems: Review of Systems: Constitutional: Denies fever or chills Eyes: Denies change in visual acuity HENT: Denies nasal congestion or sore throat Respiratory: Denies cough or shortness of breath Cardiovascular: Denies chest pain or edema GI: Denies abdominal pain, nausea, vomiting, bloody stools or diarrhea : Denies dysuria Musculoskeletal: Positive for fall Integument: Denies rash Neurologic: Denies headache, focal weakness or sensory changes Endocrine: Denies polyuria or polydipsia Lymphatic: Denies swollen glands Psychiatric: Denies depression or anxiety Heart Score: Risk Factors: Risk Factors: DM, Current or recent (<one month) smoker, HTN, HLP, family history of CAD, obesity. Risk Scores: Score 0 - 3: 2.5% MACE over next 6 weeks - Discharge Home Score 4 - 6: 20.3% MACE over next 6 weeks - Admit for Clinical Observation Score 7 - 10: 72.7% MACE over next 6 weeks - Early Invasive Strategies Allergies: Allergies: Allergies Coded Allergies Type Severity Reaction Last Updated Verified iodine Allergy Severe 12/07/19 Yes adhesive tape Allergy Intermediate 12/07/19 Yes clonidine Allergy Intermediate 12/07/19 Yes loratadine Allergy Intermediate 12/07/19 Yes magnesium sulfate Allergy Intermediate 12/07/19 Yes oxycodone Allergy Intermediate N/V 12/12/19 Yes penicillin Allergy Intermediate 12/07/19 Yes propoxyphene Allergy Intermediate 12/07/19 Yes pseudoephedrine Allergy Intermediate 12/07/19 Yes sodium sulfate Allergy Intermediate 12/07/19 Yes Physical Exam: PE: Physical Exam Trauma: Primary Survey: Airway: Intact. Speaks in normal voice and phonation. Breathing: Breath sounds are clear and equal bilaterally. Circulation: Regular rhythm, 2+ and symmetric radial, DP and PT pulses. Disability: GCS on arrival was 15. Pupils 3 mm, ERRL Exposure: Complete exposure obtained and described in detail below. Secondary Survey: General: Awake, alert, appropriate, and in no acute distress HENT: Atraumatic. TMs clear bilaterally, no hemotympanum. No periorbital tenderness or deformity. No obvious craniofacial trauma. Midface is stable. No apparent dental or tongue/oropharyngeal injury. No septal hematoma. Neck: C-spine: no midline tenderness. Without step-off, deformity, abrasion, ecchymosis, or other signs of trauma. Paraspinal musculature with no tenderness and/or hypertonicity. Eyes: Pupils 3 mm ERRL, EOMI grossly, no evidence of ocular trauma, conjunctivae normal Respiratory: CTAB without wheezing, rhonchi, or rales. No distress. Chest wall with no tenderness to palpation. No crepitus, ecchymosis, or flail segment present. Cardiovascular: Regular rhythm without murmurs noted. 2+ and symmetric radial, DP and PT pulses. GI: Soft, non-tender, non-distended Musculoskeletal: T-spine: no midline tenderness. Without step-off, deformity, abrasion, ec chymosis, or other signs of trauma. Paraspinal musculature with no tenderness and/or hypertonicity. L-spine: no midline tenderness. Without step-off, deformity, abrasion, ecchymosis, or other signs of trauma. Paraspinal musculature with no tenderness and/or hypertonicity. RUE: Active ROM, no obvious deformity, no gross weakness or sensory deficits, warm & well-perfused LUE: Active ROM, no obvious deformity, no gross weakness or sensory deficits, warm & well-perfused RLE: Active ROM, no obvious deformity, no gross weakness or sensory deficits, warm & well-perfused LLE: Active ROM, no obvious deformity, no gross weakness or sensory deficits, warm & well-perfused bruising noted to the left anterior thigh.. Integument: Without abrasions, contusions, or lacerations. Neurologic: GCS on arrival as noted above. No obvious focal motor or sensory deficits on examination. Gait not assessed due to acuity of trauma assessment. Current Patient Data: Labs: Laboratory Tests Test 03/26/20 12:57 White Blood Count 7.6 x10^3/uL Red Blood Count 4.47 x10^6/uL Hemoglobin 13.5 g/dL Hematocrit 40.4 % Mean Corpuscular Volume 90 fL Mean Corpuscular Hemoglobin 30 pg Mean Corpuscular Hemoglobin Concent 33 g/dL Red Cell Distribution Width 15.6 % Platelet Count 342 x10^3/uL Neutrophils (%) (Auto) 73 % Lymphocytes (%) (Auto) 15 % Monocytes (%) (Auto) 11 % Eosinophils (%) (Auto) 0 % Basophils (%) (Auto) 1 % Neutrophils # (Auto) 5.5 x10^3uL Lymphocytes # (Auto) 1.1 x10^3/uL Monocytes # (Auto) 0.8 x10^3/uL Eosinophils # (Auto) 0.0 x10^3/uL Basophils # (Auto) 0.1 x10^3/uL Sodium Level 134 mmol/L Potassium Level 3.0 mmol/L Chloride Level 99 mmol/L Carbon Dioxide Level 23 mmol/L Anion Gap 12 Blood Urea Nitrogen 9 mg/dL Creatinine 0.8 mg/dL Estimated GFR (Cockcroft-Gault) 69.9 Glucose Level 190 mg/dL Calcium Level 8.9 mg/dL Vital Signs: Vital Signs Date Time Temp Pulse Resp B/P (MAP) Pulse Ox O2 Delivery O2 Flow Rate FiO2 03/26/20 12:38 98 18 152/70 (97) 100 EKG: EKG: EKG consistent with normal sinus rhythm. Ventricular rate of 93 bpm. Lafe normal. Intervals normal. No U wave present. No acute ischemic changes noted. [] Radiology/Procedures: Radiology/Procedures: [address] [address] IMAGING REPORT Signed PATIENT: CELIA BOSCH FACCOUNT: [id number] : 1945 LOCATION: ER AGE: 74 SEX: F EXAM STATUS: REG ER ORD. PHYSICIAN: QUIN KING DO REASON: fall PROCEDURE: HIP BILATERAL WITH PELVIS EXAM: CT Head without IV contrast INDICATION: Reason: fall / Spl. Instructions: / History: TECHNIQUE: Multi-detector row CT images were obtained of the head without the use of IV contrast. All CT scans performed at this facility utilize dose optimization techniques as appropriate to the exam, including the following: Automated exposure control and adjustment of the mA and/or KV according to patient size (this includes techniques or standardized protocols for targeted exams where dose is indication/reason for exam). COMPARISON: Noncontrast head CT 07/22/2007 FINDINGS: BRAIN PARENCHYMA: No evidence of acute intraparenchymal hemorrhage or infarct. Interval decrease in white matter attenuation compatible with development of chronic ischemic microvascular change. VENTRICLES & EXTRA-AXIAL SPACES: Ventricles are within normal limits. Basilar cisterns are patent. No pathologic extra-axial fluid collection or mass. ORBITS: Orbital contents are unremarkable. SINUSES: Visualized paranasal sinuses and mastoid air cells are clear. OSSEOUS & SOFT TISSUES: Calvarium and skull base are intact. IMPRESSION: No acute intracranial pathology. EXAM: CT Cervical Spine without IV contrast INDICATION: Reason: fall / Spl. Instructions: / History: TECHNIQUE: Multi-detector row CT images were obtained through the cervical spine without the use of IV contrast. Post-processing sagittal and coronal reconstructed images were obtained for interpretation. All CT scans performed at this facility utilize dose optimization techniques as appropriate to the exam, including the following: Automated exposure control and adjustment of the mA and/or KV according to patient size (this includes techniques or standardized protocols for targeted exams where dose is indication/reason for exam). COMPARISON: None FINDINGS: CRANIOCERVICAL JUNCTION: Unremarkable. ALIGNMENT: Alignment is within normal limits. OSSEOUS: No evidence of fracture or bone destruction. DISC SPACES: Unremarkable. FACET JOINTS: Multilevel facet degenerative changes are present. SPINAL CANAL: Unremarkable. NEUROFORAMINA: Unremarkable. SOFT TISSUES: Bilateral carotid calcifications are present. IMPRESSION: No acute traumatic findings in the cervical spine with multilevel degenerative changes noted. Electronically signed by: Tray Jackson MD (03/26/2020 1:19 PM) [id number] DICTATED AND SIGNED BY: TRAY JACKSON MD DATE: 03/26/20 1319 CC: VICKI CONNOR MD; QUIN KING DO ~ [place] [address] IMAGING REPORT Signed PATIENT: CELIA BOSCH FACCOUNT: [id number] : 1945 LOCATION: ER AGE: 74 SEX: F EXAM STATUS: REG ER ORD. PHYSICIAN: QUIN KING DO REASON: fall PROCEDURE: CT HEAD AND CERVICAL SPINE WO EXAM: CT Head without IV contrast INDICATION: Reason: fall / Spl. Instructions: / History: TECHNIQUE: Multi-detector row CT images were obtained of the head without the use of IV contrast. All CT scans performed at this facility utilize dose optimization techniques as appropriate to the exam, including the following: Automated exposure control and adjustment of the mA and/or KV according to patient size (this includes techniques or standardized protocols for targeted exams where dose is indication/reason for exam). COMPARISON: Noncontrast head CT 07/22/2007 FINDINGS: BRAIN PARENCHYMA: No evidence of acute intraparenchymal hemorrhage or infarct. Interval decrease in white matter attenuation compatible with development of chronic ischemic microvascular change. VENTRICLES & EXTRA-AXIAL SPACES: Ventricles are within normal limits. Basilar cisterns are patent. No pathologic extra-axial fluid collection or mass. ORBITS: Orbital contents are unremarkable. SINUSES: Visualized paranasal sinuses and mastoid air cells are clear. OSSEOUS & SOFT TISSUES: Calvarium and skull base are intact. IMPRESSION: No acute intracranial pathology. EXAM: CT Cervical Spine without IV contrast INDICATION: Reason: fall / Spl. Instructions: / History: TECHNIQUE: Multi-detector row CT images were obtained through the cervical spine without the use of IV contrast. Post-processing sagittal and coronal reconstructed images were obtained for interpretation. All CT scans performed at this facility utilize dose optimization techniques as appropriate to the exam, including the following: Automated exposure control and adjustment of the mA and/or KV according to patient size (this includes techniques or standardized protocols for targeted exams where dose is indication/reason for exam). COMPARISON: None FINDINGS: CRANIOCERVICAL JUNCTION: Unremarkable. ALIGNMENT: Alignment is within normal limits. OSSEOUS: No evidence of fracture or bone destruction. DISC SPACES: Unremarkable. FACET JOINTS: Multilevel facet degenerative changes are present. SPINAL CANAL: Unremarkable. NEUROFORAMINA: Unremarkable. SOFT TISSUES: Bilateral carotid calcifications are present. IMPRESSION: No acute traumatic findings in the cervical spine with multilevel degenerative changes noted. Electronically signed by: Tray Jackson MD (03/26/2020 1:19 PM) [id number] DICTATED AND SIGNED BY: TRAY JACKSON MD DATE: 03/26/20 1319 CC: VICKI CONNOR MD; QUIN KING DO ~ [] Course & Med Decision Making: Course & Med Decision Making Pertinent Labs and Imaging studies reviewed. (See chart for details) [] Patient is a very pleasant 74-year-old female who presents with chief complaint of head injury status post chemical fall several hours prior to a rrival. Initial vital signs unremarkable. Per chart review patient has a history of chronic diarrhea causing low potassium. She does take multiple electrolyte supplements at home. CT imaging of the head neck was unremarkable. Repeat labs were obtained given her history electrolyte abnormality noted of a potassium 3.0. I did discuss case with Dr. Dove the patient's primary care doctor. He recommended oral potassium replacement and follow-up with his clinic. Overall do feel this is reasonable. EKG without concerning changes. She has no symptoms at this time. She does have full prescriptions of electrolyte replacement tablets at home. She does feel comfortable following up with her primary care physician. Strict return precautions were discussed and understood. She is stable for discharge home Dragon Disclaimer: DragCOVEGA Disclaimer: This electronic medical record was generated, in whole or in part, using a voice recognition dictation system. Departure Departure: Impression: Primary Impression: Fall Qualified Codes: W19.XXXA - Unspecified fall, initial encounter Additional Impressions: Hypokalemia Chronic diarrhea Disposition: 01 DC HOME SELF CARE/HOMELESS Condition: STABLE Referrals: VICKI CONNOR MD (PCP) Patient Instructions: Hypokalemia Additional Instructions: Please follow-up with your primary care physician in the next 1 to 2 days. Please continue to take your electrolyte supplements at home as prescribed. QUIN KING DO Mar 26, 2020 12:45
[2020-03-26 13:21] LABS: BASO # 0.1 x10^3/uL (0.0-0.2); BASO % 1 % (0-3); EOS % 0 % (0-3); HEMATOCRIT 40.4 % (36.0-47.0); HEMOGLOBIN 13.5 g/dL (12.0-15.5); LYMPH # 1.1 x10^3/uL (1.0-4.8); LYMPH % 15 % (24-48); MEAN CORPUSCULAR HEMOGLOBIN 30 pg (25-35); MEAN CORPUSCULAR HGB CONC 33 g/dL (31-37); MEAN CORPUSCULAR VOLUME 90 fL (79-100); MONO # 0.8 x10^3/uL (0.0-1.1); MONO % 11 % (0-9); NEUT # 5.5 x10^3uL (1.8-7.7); NEUT % 73 % (31-73); PLATELET COUNT 342 x10^3/uL (140-400); RED BLOOD COUNT 4.47 x10^6/uL (3.50-5.40); RED CELL DISTRIBUTION WIDTH 15.6 % (11.5-14.5); WHITE BLOOD COUNT 7.6 x10^3/uL (4.0-11.0)
--- NOTE | 2020-03-26 13:22 | RAD ---
EXAM: CT Head without IV contrast INDICATION: Reason: fall / Spl. Instructions: / History: TECHNIQUE: Multi-detector row CT images were obtained of the head without the use of IV contrast. All CT scans performed at this facility utilize dose optimization techniques as appropriate to the exam, including the following: Automated exposure control and adjustment of the mA and/or KV according to patient size (this includes techniques or standardized protocols for targeted exams where dose is indication/reason for exam). COMPARISON: Noncontrast head CT 07/22/2007 FINDINGS: BRAIN PARENCHYMA: No evidence of acute intraparenchymal hemorrhage or infarct. Interval decrease in white matter attenuation compatible with development of chronic ischemic microvascular change. VENTRICLES & EXTRA-AXIAL SPACES: Ventricles are within normal limits. Basilar cisterns are patent. No pathologic extra-axial fluid collection or mass. ORBITS: Orbital contents are unremarkable. SINUSES: Visualized paranasal sinuses and mastoid air cells are clear. OSSEOUS & SOFT TISSUES: Calvarium and skull base are intact. IMPRESSION: No acute intracranial pathology. EXAM: CT Cervical Spine without IV contrast INDICATION: Reason: fall / Spl. Instructions: / History: TECHNIQUE: Multi-detector row CT images were obtained through the cervical spine without the use of IV contrast. Post-processing sagittal and coronal reconstructed images were obtained for interpretation. All CT scans performed at this facility utilize dose optimization techniques as appropriate to the exam, including the following: Automated exposure control and adjustment of the mA and/or KV according to patient size (this includes techniques or standardized protocols for targeted exams where dose is indication/reason for exam). COMPARISON: None FINDINGS: CRANIOCERVICAL JUNCTION: Unremarkable. ALIGNMENT: Alignment is within normal limits. OSSEOUS: No evidence of fracture or bone destruction. DISC SPACES: Unremarkable. FACET JOINTS: Multilevel facet degenerative changes are present. SPINAL CANAL: Unremarkable. NEUROFORAMINA: Unremarkable. SOFT TISSUES: Bilateral carotid calcifications are present. IMPRESSION: No acute traumatic findings in the cervical spine with multilevel degenerative changes noted. Electronically signed by: Jorge Jackson MD (03/26/2020 1:19 PM) [id number]
[2020-03-26 13:29] LABS: CALCIUM 8.9 mg/dL (8.5-10.1); CREATININE 0.8 mg/dL (0.6-1.0); GFR 69.9
[2020-03-26] MEDS ORDERED: POTASSIUM CHLORIDE 20 MEQ TABLET.ER. PO ONE (14:15)
[2020-03-26 14:47] VITALS: BP 133/57
--- NOTE | 2020-03-26 14:51 | EKG ---
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
== END 2020-03-26 15:00 | disposition home or self-care (01) ==
LOC: ER 12:26
DX: S70.12XA Contusion of left thigh, initial encounter (principal); E87.6 Hypokalemia; K52.9 Noninfective gastroenteritis and colitis, unspecified; K21.9 Gastro-esophageal reflux disease without esophagitis; E78.00 Pure hypercholesterolemia, unspecified; I10 Essential (primary) hypertension; Z88.8 Allergy status to other drugs, medicaments and biological substances; Z88.5 Allergy status to narcotic agent; Z88.0 Allergy status to penicillin; W18.09XA Striking against other object with subsequent fall, initial encounter; Y93.01 Activity, walking, marching and hiking; Y92.89 Other specified places as the place of occurrence of the external cause; Y99.8 Other external cause status
CPT/HCPCS: 36415; 70450; 72125; 73521; 80048; 85025; 93005; 99285-25

== ENCOUNTER → 2020-07-06 | Outpatient (CLI) | payer MEDICARE, OTHER ==
[2020-07-06] MEDS: DENOSUMAB 60 MG/ML DISP.SYRIN. SQ ONE (12:21)
[2020-07-06 12:38] VITALS: BP 124/79
== END | disposition home or self-care (01) ==
LOC: OPINF 11:31
PROVIDERS: ATTEND Family Medicine
DX: M81.8 Other osteoporosis without current pathological fracture (principal)
CPT/HCPCS: 96372; J0897

== ENCOUNTER → 2020-11-30 | Outpatient (CLI) | payer MEDICARE, OTHER ==
[2020-07-06 12:38] VITALS: BP 124/79
[~2020-11-30] MED LIST changes: -CHOL10003 PO; +CHOL10004 PO; +VITA-47 PO; -VITA-54 PO
--- NOTE | 2020-11-30 14:33 | RAD ---
MR#: [id number] Date of Study: 11/30/2020 Ordering Physician: SNEHAL ZAMORA, Referring Physician: SNEHAL ZAMORA, Tech: Elli Nino RVT, TITO APPROVED REPORT Patient Location : OUT-PATIENT Indications Lower Extremity Edema : Grayscale images the bilateral greater saphenous veins did not reveal any obvious evidence of thrombu s. The right great saphenous vein measures 7 mm and the left great saphenous vein measures 5 mm. Ov erall no evidence of reflux based on spectral waveforms and color Doppler. Bilateral lesser saphenou s veins were not well visualized. Past History Compression Stockings : Yes Medications Plavix Critical Notification Critical Value: No <Conclusion> 1. Negative for reflux in the bilateral greater saphenous veins Signed by : Donnell Guzmán, Electronically Approved : 11/30/2020 14:33:24
== END ==
LOC: US 12:33
PROVIDERS: ATTEND Internal Medicine Cardiovascular Disease
DX: R60.0 Localized edema (principal)
CPT/HCPCS: 93970

== ENCOUNTER → 2020-12-23 | Outpatient (CLI) | payer MEDICARE, OTHER ==
[2020-07-06 12:38] VITALS: BP 124/79
[2020-12-23 14:05] LABS: CALCIUM 9.2 mg/dL (8.5-10.1); CREATININE 0.7 mg/dL (0.6-1.0); GFR 81.4; POTASSIUM 4.1 mmol/L (3.5-5.1)
== END ==
LOC: LAB 12:57
PROVIDERS: ATTEND Family Medicine
DX: E87.6 Hypokalemia (principal); R60.0 Localized edema
CPT/HCPCS: 36415; 80048; 83880

== ENCOUNTER → 2020-12-25 | Outpatient (CLI) | payer MEDICARE, OTHER ==
[~2020-12-25] MED LIST changes: +DENOSUMAB 60 MG/ML DISP.SYRIN. SQ ONE
[2020-12-25 10:57] VITALS: BP 146/71
--- NOTE | 2020-12-25 11:06 | NUR ---
pt arrived at 1057 for outpatient injection, vss, medication administered without difficulty, pt tolerated well. pt out the door at 1106
== END | disposition home or self-care (01) ==
LOC: OPS 10:46
PROVIDERS: ATTEND Family Medicine
DX: M81.8 Other osteoporosis without current pathological fracture (principal)
CPT/HCPCS: 96372; J0897

== ENCOUNTER → 2021-01-01 | Outpatient (CLI) | payer MEDICARE, OTHER ==
[2020-12-25 10:57] VITALS: BP 146/71
[~2021-01-01] MED LIST changes: -DENOSUMAB 60 MG/ML DISP.SYRIN. SQ ONE
--- NOTE | 2021-01-01 13:32 | RAD ---
EXAMINATION: CT head without IV contrast INDICATION:75 years, Female, subdural hematoma. COMPARISON: 03/26/2020 TECHNIQUE: Spiral acquisition of contiguous images from the skull base to the vertex were obtained. S agittal and coronal 2D reformatted series were provided by the technologist. Soft tissue and bone win rosie algorithms were reviewed. Exposure: One or more of the following individualized dose reduction techniques were utilized for thi s examination: 1. Automated exposure control 2. Adjustment of the mA and/or kV according to patient size 3. Use of iterative reconstruction technique. FINDINGS: Neither mass, midline shift, intracranial hemorrhage, acute/subacute ischemic changes, nor extraaxial fluid collections are seen. The brain parenchyma is normal in appearance. The ventricles are normal in size. The paranasal sinuses, mastoid air cells, and middle ears are clear. The orbital contents appear within normal limits. IMPRESSION: No evidence of acute intracranial abnormality. Electronically signed by: Althea Garcia MD (01/01/2021 1:29 PM) [facility]
== END ==
LOC: CT 12:32
PROVIDERS: ATTEND Family Medicine
DX: S06.5X9A Traumatic subdural hemorrhage with loss of consciousness of unspecified duration, initial encounter (principal); X58.XXXA Exposure to other specified factors, initial encounter; Y93.89 Activity, other specified; Y92.89 Other specified places as the place of occurrence of the external cause; Y99.8 Other external cause status
CPT/HCPCS: 70450

== ENCOUNTER → 2021-07-01 | Outpatient (CLI) | payer MEDICARE ==
[~2021-07-01] MED LIST changes: -BENA20TA4 PO; +BENA20TA84 PO; +DENOSUMAB 60 MG/ML DISP.SYRIN. SQ ONE; +POTA-121 PO; -POTA20TA4 PO
--- NOTE | 2021-07-01 11:26 | NUR ---
PT AMBULATED TO ROOM 105 FOR INJECTION. VITAL SIGNS WNL.
[2021-07-01 11:29] VITALS: BP 104/64
== END | disposition home or self-care (01) ==
LOC: OPINF 11:07
PROVIDERS: ATTEND Family Medicine
DX: M81.8 Other osteoporosis without current pathological fracture (principal)
CPT/HCPCS: 96372; J0897